=== PATIENT | female | born 1960 | race Caucasian/White ===

== ENCOUNTER → 2017-04-22 | Outpatient (CLI) | payer OTHER ==
[~2017-04-22] MED LIST: ASCA500 PO; CHOL100010 PO; FLUT0.15 NAE; GLUCTAB7 PO; IBUP-1105 PO; LEVO75TA5 PO; MAGN400T6 PO; MULT-506 PO
--- NOTE | 2017-04-23 14:06 | MAMMOGRAPHY REPORT ---
BILATERAL DIGITAL SCREENING MAMMOGRAM TOMOSYNTHESIS WITH CAD: 04/22/2017 CLINICAL HISTORY: Routine screening. Patient has no complaints. TECHNIQUE: Breast tomosynthesis in addition to standard 2D mammography was performed. Current study was also evaluated with a Computer Aided Detection (CAD) system. COMPARISON: Comparison is made to exams dated: 04/09/2016 ultrasound, 04/09/2016 mammogram, 03/31/2016 mammogram, 03/26/2015 mammogram, 03/24/2014 mammogram, and 03/22/2013 mammogram - [facility]. BREAST COMPOSITION: The tissue of both breasts is heterogeneously dense, which may obscure small ma sses. FINDINGS: The parenchymal pattern is unchanged. No developing mass, architectural distortion or clu ster of suspicious microcalcifications is seen in either breast. IMPRESSION: ACR BI-RADS CATEGORY 2: BENIGN There is no mammographic evidence of malignancy. A 1 year screening mammogram is recommended. The p atient will receive written notification of the results. Approximately 10% of breast cancers are not detected with mammography. A negative mammographic repor t should not delay biopsy if a clinically suggestive mass is present. Carey Silva M.D. ay/:04/22/2017 15:43:29 Canine Enforcement Officer: Debbie BARTON(Jigna)(M), [facility] letter sent: Normal 1/2 BI-RADS Code: ACR BI-RADS Category 2: Benign
== END | disposition home or self-care (01) ==
LOC: C.MAMM 14:24
PROVIDERS: ATTEND Family Medicine
DX: Z12.31 Encounter for screening mammogram for malignant neoplasm of breast (principal)

== ENCOUNTER → 2017-09-22 | Outpatient (CLI) | payer OTHER | END | disposition home or self-care (01) | LOC: C.RDSM 14:00 | PROVIDERS: ATTEND Orthopaedic Surgery Sports Medicine | DX: M25.521 Pain in right elbow (principal) ==

== ENCOUNTER → 2017-10-28 | Outpatient (CLI) | payer OTHER ==
--- NOTE | 2017-10-28 09:36 | DIAGNOSTIC IMAGING REPORT ---
ULTRASOUND OF THE THYROID GLAND CLINICAL HISTORY: Multinodular goiter. COMPARISON STUDY: Thyroid ultrasound dated 08/02/2014. TECHNIQUE: Real-time, grayscale, and color flow sonography of the thyroid gland is performed utilizing a high-frequency linear transducer. Images are reviewed in the transverse and longitudinal planes. FINDINGS: Right lobe: The right lobe of the thyroid gland is normal in size and homogeneous in echotexture, measuring 4.9 x 1.3 x 1.3 cm. A hypoechoic nodule versus colloid cyst is identified in the right midpole and measures 1.1 x 0.6 x 0.7 cm (producing measured 2.0 x 1.1 x 0.9 cm). An additional 2 mm hypoechoic nodule is seen in the midpole. Left lobe: The left lobe of the thyroid gland is normal in size and homogeneous in echotexture, measuring 3.7 x 1.2 x 1.2 cm. Isthmus: The thyroid isthmus is normal in appearance and measures 0.2 cm in AP diameter. Again seen is a 1.7 x 1.1 x 1.5 cm simple appearing cystic structure seen inferior to the thyroid gland in the midline (previously measuring 1.7 x 1.4 x 1.5 cm). IMPRESSION: 1. A 1.1 cm cystic nodule in the right lobe has significantly decreased in size as compared to 08/02/2014. 2. A 1.7 cm cystic lesion in the midline inferior to the thyroid gland has not significantly changed from 2013. 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 Electronically signed by: Gonzalo Nesbitt M.D. 10/28/2017 9:35 AM Dictated Date/Time: 10/28/2017 9:25 AM
== END | disposition home or self-care (01) ==
LOC: C.ULTRBC 08:45
PROVIDERS: ATTEND Physician Assistant
DX: E04.2 Nontoxic multinodular goiter (principal)

== ENCOUNTER → 2018-04-06 | Outpatient (CLI) | payer OTHER ==
--- NOTE | 2018-04-07 15:06 | MAMMOGRAPHY REPORT ---
BILATERAL DIGITAL SCREENING MAMMOGRAM TOMOSYNTHESIS WITH CAD: 04/06/2018 CLINICAL HISTORY: Routine screening. Patient has no complaints. TECHNIQUE: Breast tomosynthesis in addition to standard 2D mammography was performed. Current study was also evaluated with a Computer Aided Detection (CAD) system. COMPARISON: Comparison is made to exams dated: 04/22/2017 mammogram, 04/09/2016 ultrasound, 04/09/2016 mammogram, 03/31/2016 mammogram, 03/26/2015 mammogram, and 03/24/2014 mammogram - [facility]. BREAST COMPOSITION: The tissue of both breasts is heterogeneously dense, which may obscure small mas ses. FINDINGS: The parenchymal pattern is unchanged. No developing mass, architectural distortion or clus ter of suspicious microcalcifications is seen in either breast. IMPRESSION: ACR BI-RADS CATEGORY 2: BENIGN There is no mammographic evidence of malignancy. A 1 year screening mammogram is recommended. The pa tient will receive written notification of the results. Approximately 10% of breast cancers are not detected with mammography. A negative mammographic report should not delay biopsy if a clinically suggestive mass is present. Carey Silva M.D. ay/:04/06/2018 16:29:42 Ocean Freight Manager: Jigna Yadav M, [facility] letter sent: Normal 1/2 BI-RADS Code: ACR BI-RADS Category 2: Benign
== END | disposition home or self-care (01) ==
LOC: C.MAMM 11:33
PROVIDERS: ATTEND Nurse Practitioner
DX: Z12.31 Encounter for screening mammogram for malignant neoplasm of breast (principal)

== ENCOUNTER 2022-05-06 07:35 | Observation (INO) ==
--- NOTE | 2022-04-24 11:05 | PAT Medication Instructions ---
Medication Instructions Date of Service April 24, 2022 Home Medications fluticasone propionate 50 mcg/actuation nasal spray,suspension (Flonase Allergy Relief) 1 sprays INTNAS QAM PRN multivitamin 1 cap PO QPM ascorbic acid (vitamin C) 1,000 mg tablet 1,000 - 2,000 mg PO QAM calcium phosphate,dibasic 77 mg-vitamin D3 400 unit tablet tab PO levothyroxine 75 mcg tablet (Synthroid) 75 mcg PO QAM magnesium citrate 100 mg tablet 400 mg PO QAM riboflavin (vitamin B2) 400 mg tablet 400 mg PO QAM ubrogepant 100 mg tablet (Ubrelvy) 100 mg PO QAM PRN DO NOT take the morning of surgery ascorbic acid (vitamin C) 1,000 mg tablet 1,000 - 2,000 mg PO QAM calcium phosphate,dibasic 77 mg-vitamin D3 400 unit tablet tab PO magnesium citrate 100 mg tablet 400 mg PO QAM riboflavin (vitamin B2) 400 mg tablet 400 mg PO QAM Take morning of surgery With a small sip of water, OTHERWISE NOTHING TO EAT OR DRINK AFTER MIDNIGHT: fluticasone propionate 50 mcg/actuation nasal spray,suspension (Flonase Allergy Relief) 1 sprays INTNAS QAM PRN(if needed) levothyroxine 75 mcg tablet (Synthroid) 75 mcg PO QAM ubrogepant 100 mg tablet (Ubrelvy) 100 mg PO QAM PRN(if needed) Take evening before surgery multivitamin 1 cap PO QPM Other Notes If you have any questions please call us at [phone] or [phone] or [phone] or [phone]
--- NOTE | 2022-04-29 10:15 | Anesthesiology Consultation ---
Date of Service April 29, 2022 Assessment & Plan (1) Encounter for pre-operative examination: - atrial septal aneurysm without PFO. Case discussed with Dr. Rowe who also reviewed echocardiogram and advised patient is acceptable risk for surgery and option of neuraxial anesthesia not requiring fentanyl, if pt elects to proceed with neuraxial anesthesia am DOS. pt states does not want/cannot receive any fentanyl. She also has concerns with neuraxial vs general anesthesia. We discussed both, typical approach for TKAs and she plans to have final discussion with anesthesiologist am DOS. - COVID screening: Per assessment on 04/29/2022: Travel screen negative, no known COVID-19 positive contacts or current COVID-19 related symptoms in past 2 weeks. Pt vaccinated. Surgeon arranging preop COVID testing, scheduled 05/02/2022. Awaiting results. Chart Review Chart Review: Acceptable Risk for Surgery and Patient seen in Pre Admission Testing Teaching & Discussion Pre-Anesthesia Teaching/Discussion Notes: Instructed NPO after midnight before surgery, except medications with 15 cc of water. Medication instructions provided according to the PAT guidelines. History Surgery Operation Date: 05/06/22 07:00 Proposed Procedures p Right Total Knee Arthroplasty - Jeffrey Meliton Meadows MD Height/Weight Height: 6 ft Weight: 85.7 kg Allergies Allergy/AdvReac Type Severity Reaction Status Date / Time nitrofurantoin Allergy Unknown Rash Verified 04/24/22 10:01 [From Macrobid] fentanyl AdvReac Severe hallucinati Verified 04/29/22 10:29 ons Penicillins AdvReac Mild GI UPSET - Verified 04/24/22 10:01 HAPPENED A CHILD Sulfa (Sulfonamide AdvReac Mild GI upset Verified 04/24/22 10:01 Antibiotics) lactose AdvReac Unknown SENSITIVITY Verified 04/24/22 10:01 TO MILK Medications Home Medications Medication Instructions Recorded Confirmed Last Taken fluticasone propionate 50 1 sprays INTNAS QAM PRN 09/21/19 04/24/22 Unknown mcg/actuation nasal spray,suspension (Flonase Allergy Relief) multivitamin 1 cap PO QPM 09/21/19 04/24/22 Unknown ascorbic acid (vitamin C) 1,000 mg 1,000 - 2,000 mg PO QAM tab 03/28/21 04/24/22 Unknown tablet calcium phosphate,dibasic 77 tab PO 04/24/22 Unknown mg-vitamin D3 400 unit tablet levothyroxine 75 mcg tablet 75 mcg PO QAM 04/24/22 04/24/22 Unknown (Synthroid) magnesium citrate 100 mg tablet 400 mg PO QAM 04/24/22 04/24/22 Unknown riboflavin (vitamin B2) 400 mg 400 mg PO QAM 04/24/22 04/24/22 Unknown tablet ubrogepant 100 mg tablet (Ubrelvy) 100 mg PO QAM PRN 04/24/22 04/24/22 Unknown Past Medical History Medical History (Updated 04/30/22 @ 08:59 by Olivia Chase PA-C) Asthma ALLERGIES-RARELY USES INHALER-last rescue inhaler use several months ago Atrial septal aneurysm "without obvious PFO" 06/2021 echo GERD (gastroesophageal reflux disease) controlled, stable per pt Tom's thyroiditis Heart murmur per pt detected by PCP last yr, no listed aortic stenosis on 07/2021 echo: atrial septum aneurysm without obvious PFO detected Hyperlipidemia pt denies Lyme disease 4-5 yrs ago, treated, denies residual problems Migraine Prolapse of bladder Patient denies h/o stroke, seizures, heart attack, heart failure, DM, HTN, blood clots or blood transfusions. Exercise / Class Metabolic Activity II 4-5 Yardwork/Stairs/Walk up hill (denies CP or SOB with 1 FOS) Past Family History Family History Mother Hypertension Grandmother (Maternal) Family hx of colon cancer Past Surgical History Surgical History (Updated 04/29/22 @ 10:41 by Olivia Chase PA-C) H/O bladder repair surgery x3-pt reports awareness during surgery H/O knee surgery R-x3 /L-x2 H/O myomectomy fibroid H/O: hysterectomy History of bilateral tubal ligation History of colonoscopy 10 yrs History of esophagogastroduodenoscopy (EGD) History of herniorrhaphy History of repair of rotator cuff RIGHT S/P hernia repair at 6 mos old Past Anesthesia History No Family Hx of Anesthesia Complications and Other (awareness) History of PONV No Hx of PONV and No Hx of Motion Sickness Social History Smoking Status: Never smoker Do You Dip or Chew Tobacco: No Hx Alcohol Use: Yes Alcohol type: wine alcohol intake frequency: 0-2 drinks per day Hx Substance Use: No substance use type: does not use Review of Systems Patient denies chest pain, shortness of breath, dyspnea on exertion, snoring, w itnessed apneas, fever, chills, cough, wheezing, or palpitations. Physical Exam Vital Signs Vitals BP 112/66 P 76 TEMP 98.4 SP02 98% on RA RESP 16 Physical Full cervical extension range of motion without pain TMD 3.5 finger breaths Mallampati Score 2 Dentition: intact, missing teeth-left upper side, [place] permanent bridge left side, several caps/crowns throughout-none in front; denies chipped or loose teeth, implants Lungs: normal respiratory effort. Clear throughout to auscultation, no adventitious breath sounds Cardiac: regular rate and rhythm, no murmurs noted Carotid arteries: negative bruit bilat Lab Results Anesthesia Preop Results Results Anesthesia Widget: WBC 3.39 K/uL (4.8-10.8) L 04/29/22 Hgb 14.4 g/dL (12.0-16.0) 04/29/22 Hct 41.6 % (37-47) 04/29/22 Plt 253 K/uL (130-400) 04/29/22 Na 134 mmol/L (136-145) L 04/29/22 K 3.9 mmol/L (3.5-5.1) 04/29/22 Cl 99 mmol/L (98-107) 04/29/22 CO2 30 mmol/L (21-32) 04/29/22 BUN 11 mg/dl (6-23) 04/29/22 Creat 0.72 mg/dl (0.6-1.2) 04/29/22 Glucose Level 123 mg/dl (70-99(Fasting)) H 04/29/22 PT 10.7 Seconds (9.0-12.0) 04/29/22 PTT 25.6 Seconds (21.0-31.0) 04/29/22 INR 1.0 (0.9-1.1) 04/29/22 Urine Color Dark Yellow 04/29/22 Urine Appearance Clear (Clear) 04/29/22 Urine pH 5.0 (4.5-7.5) 04/29/22 Urine Specific Peridot 1.009 (1.000-1.030) 04/29/22 Urine Protein Negative (Negative) 04/29/22 Urine Glucose (UA) Negative (Negative) 04/29/22 Urine Ketones Negative (Negative) 04/29/22 Urine Blood Negative (Negative) 04/29/22 Urine Nitrite Negative (Negative) 04/29/22 Urine Bilirubin Negative (Negative) 04/29/22 Urine Urobilinogen Negative (Negative) 04/29/22 Urine Leukocyte Esterase Negative (Negative) 04/29/22 Blood Type O Positive 04/29/22 Antibody Screen NEGATIVE 04/29/22 Testing Laboratory Results Chronic leukopenia since 2018. Electrocardiogram Date: 04/29/22 NSR, rate 72 bpm Chest X-Ray Date: 04/29/22 The cardiomediastinal and hilar silhouettes are within normal limits. No pneumothorax, pleural effusion, airspace consolidation or overt pulmonary edema. Bones of the chest appear grossly intact. Mild sigmoidal scoliosis of the spine. IMPRESSION: No acute process. Echocardiogram Date: 08/06/21 EF 65% Normal LV size, wall thickness, systolic function with no regional wall motion abnormalities Type 1 diastolic dysfunction Atrial septum aneurysm without obvious PFO Trileaflet aortic valve with trace aortic regurgitation Mild tricuspid regurgitation
--- NOTE | 2022-05-06 06:38 | History & Physical Bridge Note ---
Date of Service May 06, 2022 History & Physical Bridge Note I have examined the patient, reviewed the History & Physical and in the interval since the performance of the History & Physical I have noted the following changes of clinical significance: no changes noted Patient is aware of the risks, is asymptomatic and tested negative for COVID-19.
[~2022-05-06 07:35] MED LIST changes: +ACETAMINOPHEN 500 MG TAB PO SCH; -ASCA500 PO; +BUPIVACAINE 0.5 % 5 MG/1 ML PF 10ML VIAL ONE; -CHOL100010 PO; +EPINEPHrine INJ 1 MG/ML AMP ONE; -FLUT0.15 NAE; +GABAPENTIN 600 MG DOSE PO SCH; -GLUCTAB7 PO; -IBUP-1105 PO; -LEVO75TA5 PO; +LR 500ML BOLUS, THEN 15ML/HR IV SCH; +LR 60ML/HR IV SCH; -MAGN400T6 PO; -MULT-506 PO; +ROPIVACAINE 0.5% 5 MG/ML 30 ML VIAL ONE; +ROPIVACAINE 0.5% HCL/PF 150 MG, BUPIVACAINE 0.75% MPF 20 ML, EPINEPHrine 0.15 MG, Ketor... INFIL SCH; +Scopolamine 1 MG TDSY TD SCH; +TRANEXAMIC ACID 1,000 MG **IV Intra-op IV SCH; +TRANEXAMIC ACID 1,000 MG **IV Pre-op IV SCH; +VANCOMYCIN HCL 1,250 MG in SODIUM CHLORIDE 0.9% 250 ML IV SCH; +oxyCODONE HCL 10 MG TABCR (OxyCONTIN) PO SCH
[2022-05-06] MEDS ORDERED: MIDAZOLAM HCL 1 MG/ML 2ML VIAL ONE ×3 (09:25→11:44)
[2022-05-06] MEDS ORDERED: LIDOCAINE 2% 2 ML VIAL/AMP(20MG/ML) INFIL ONE (09:34)
[2022-05-06] MEDS ORDERED: PROPOFOL IV EMULSION 10 MG/ML 20 ML VIAL IV ONE ×4 (09:34→13:14)
[2022-05-06] MEDS ORDERED: ORTHO JOINT ANESTHETIC ONE (10:23)
[2022-05-06] MEDS ORDERED: GELATIN SPONGE 12-7MM ONE ×2 (12:34→12:37)
--- NOTE | 2022-05-06 13:39 | Post Operative Brief Note ---
Immediate Post Op Note v1 Date of Surgery May 06, 2022 Pre & Post Diagnosis Operation Date: 05/06/22 10:20 Pre-Op Diagnosis: Right Knee Osteoarthritis Post-Op Diagnosis: Right Knee Osteoarthritis I identified the patient and participated in the time-out.: Yes Procedure Operation Date: 05/06/22 10:20 Actual Procedures p Right Total Knee Arthroplasty, computer assited(Right) - Jeffrey Meadows MD Surgeon Jeffrey Meadows MD Grinder Set Up Operator Kayla Stoll PA-C (No fellow avail) Estimated Blood Loss 120 Findings Consistent with Post-Op Diagnosis Fluids 1500 cc Specimens Right knee contents Anesthesia Type MAC Spinal Regional Complications none
--- NOTE | 2022-05-06 13:40 | Operative Report ---
Post Operative Report Pre & Post Diagnosis Operation Date: 05/06/22 10:20 Pre-Op Diagnosis: Right Knee Osteoarthritis Post-Op Diagnosis: Right Knee Osteoarthritis I identified the patient and participated in the time-out.: Yes Procedure Operation Date: 05/06/22 10:20 Actual Procedures p Right Total Knee Arthroplasty, computer assisted(Right) - Jeffrey Meadows MD Surgeon Jeffrey Meadows MD Ed Case Manager Kayla Stoll PA-C (No fellow avail) Estimated Blood Loss 120 Findings See Below Examined Under Anesthesia: ROM -- There was 0 degrees to 125 degrees of flexion Ligamentous examination -- revealed stable Cherie, posterior drawer, varus and valgus stress at 0 and 30 degrees. Outerbridge Type IV changes of Tri-compartments. There were significant marginal and intercondylar osteophytes. There was a small loose body. Fluids 1500 cc Specimens Right knee contents Anesthesia Type MAC Spinal Regional Complications none Indications This is a 61-year-old female who has clinical and radiographic findings consistent with osteoarthritis of the a right knee. I recommended that a right total knee replacement be performed. The patient understands the risks of surgery, which include but not limited to: bleeding, infection, re-operation, damage to nerves and arteries, continued knee pain, knee stiffness, DVT, and . The patient understands all of these instructions and explanations, all of his questions have been satisfactorily addressed and the patient has elected to proceed. Informed consent was signed. Description of Procedure IMPLANTS: 1. Femur: Triathlon #4 Right PS. 2. Tibia: Triathlon #5 Eugene. 3. Insert: Triathlon #5 x 9 mm PS X3 poly. 4. Patella: Triathlon A35 x 10 mm X3 poly. 5. Simplex cement. Kayla Stoll PA-C is assisting with positioning, retracting, and closure due to fellow not available. Procedure: The patient was taken to the Operating Room and placed in the supine position after spinal and adductor canal nerve block was administered. My initials and a multidisciplinary time-out were used to identify the right leg as the correct operative limb. A tourniquet was placed high in the thigh. Prior to the incision, weight based intravenous Vancomycin was given. The right leg was then prepped and draped in a standard sterile fashion. An Esmarch was used to exsanguinate the leg and the tourniquet was inflated to 250 mmHg. Extending her previous lateral incision, that curved around the patella and distal to her tibial tubercle, proximally incision was created exposing the extensor mec hanism. The medial parapatellar arthrotomy was made and the patella was everted. The patella was addressed first. It was prepared by reaming from 24 mm down to 14 mm. An A35 button was found to fit best. The peg holes were made in the standard fashion. The femur was addressed next using computer assisted OrthoAlign with 3 degrees of flexion and 0 degrees of valgus in the standard fashion for the distal cut. The cut was made and the 4-in-1 cutting block for a size 4 femur was placed. These cuts and the cuts to place the box were made in the standard fashion. Our attention was then drawn to the tibia cut again using computer assisted OrthoAlign, taking 2 mm from the medial low side. There was sufficient extension and flexion gap to fit a 9 mm spacer. A #5 Tibial baseplate fit well. A trial with a 9 mm spacer showed excellent stability in both flexion and extension, with good ligament balance, and thumbs free patellar tracking. Range of motion of 0-130 degrees. The tibial baseplate was prepped for the keel and stem. All components were removed. The tourniquet was deflated. Hemostasis was obtained. 90 ml of total knee cocktail were injected into the soft tissues and periosteum. After a 12 minute break, the limb was exsanguinated again and the tourniquet was re-inflated. All surfaces were copiously irrigated prior to placement of the components. The femoral component followed by Tibial baseplate were cemented in place and and the 9 mm X3 poly was placed. Next, the patellar button was placed using the same Simplex cement. Once the cement had cured, the range of motion and stability were unchanged. The extensor mechanism was closed with 1-0 and 0 Vicryl with the knee bent approximately 60 degrees in a standard fashion. The peritenon and deep fascia was closed with 2-0 Vicryl. The subcutaneous layer was closed with 3-0 Vicryl. The skin was closed with Zipline and shield. The limb was cleaned and dried. 4x4 dressing was placed over top followed by ABDs, sterile Webril, and a foot to thigh Colin bandage. The patient was then transferred to the Recovery Room in stable condition. The sponge and needle counts were correct. POST-OP INSTRUCTIONS: The patient will be WBAT. The patient will be admitted to the hospital. Labs will be obtained during the stay. DVT prophylaxis will included aspirin for 6 weeks, TEDs, and mechanical foot pumps. The dressing will be changed prior to their discharge or postop day #2 and covered with a Silverlon dressing, whichever comes first. I attest to the content of the Intraoperative Record and any orders documented therein. Any exceptions are noted below.
[2022-05-06] MEDS ORDERED: MAGNESIUM HYDROXIDE SUSP 30 ML UDC PO PRN (13:54)
[2022-05-06] MEDS ORDERED: NALOXONE HCL 0.4 MG/1 ML VIAL/CARP IV PRN ×2 (13:54→13:57)
[2022-05-06] MEDS ORDERED: METOCLOPRAMIDE HCL INJ 5 MG/ML 2 ML VIAL IV PRN (13:54)
[2022-05-06] MEDS ORDERED: bisacodyL 10 MG SUPP PR PRN (13:54)
[2022-05-06] MEDS ORDERED: ONDANSETRON INJ 2 MG/ML 2 ML VIAL IV PRN ×2 (13:54→13:57)
--- NOTE | 2022-05-06 13:54 | Operative Report ---
Post Operative Report Pre & Post Diagnosis Operation Date: 05/06/22 10:20 Pre-Op Diagnosis: Right Knee Osteoarthritis Post-Op Diagnosis: Right Knee Osteoarthritis I identified the patient and participated in the time-out.: Yes Procedure Operation Date: 05/06/22 10:20 Actual Procedures p Right Total Knee Arthroplasty(Right) - Jeffrey Meadows MD Surgeon Dr Jeffrey Meadows Performance Test Engineer Kayla Stoll PA-C (No fellow avail) Estimated Blood Loss 120 Findings Consistent with Post-Op Diagnosis Specimens none Description of Procedure Pt was taken to operating room, placed under general anesthesia with peripheral nerve block. Pt was given 1g Vanco IV. Prepped and draped in sterile fashion. I was present during the entire case and assisted with positioning, instrumentation, closure and dressings. Please see Dr. Meadows's op report for further detail. Pt was awake and transferred to PACU in stable condition I attest to the content of the Intraoperative Record and any orders documented therein. Any exceptions are noted below.
[2022-05-06] MEDS ORDERED: VANCOMYCIN CONSULT ACTIVE PRN (13:56)
[2022-05-06] MEDS ORDERED: HYDROmorphone INJ 1 MG/ML SYRINGE IV PRN (13:57)
[2022-05-06] MEDS ORDERED: FLUMAZENIL 0.1 MG/1 ML 10 ML VIAL IV PRN (13:57)
[2022-05-06] MEDS ORDERED: PROMETHAZINE HCL 12.5 MG in SODIUM CHLORIDE 0.9% 50 ML IV PRN (13:57)
[2022-05-06] MEDS ORDERED: ATROPINE SULFATE 0.1 MG/ML 10ML SYR IV PRN (13:57)
[2022-05-06] MEDS ORDERED: ePHEDrine sulfate 50 MG/ML AMP IV PRN (13:57)
[2022-05-06] MEDS ORDERED: LABETALOL HCL IV 5 MG/ML 20ML IV PRN (13:57)
--- NOTE | 2022-05-06 14:37 | XRay Report ---
TWO VIEWS RIGHT KNEE CLINICAL HISTORY: Postoperative examination. FINDINGS: AP and crosstable lateral portable views of the right knee are obtained. A right knee arthr oplasty is in near anatomic alignment. There has been undersurface remodeling of the patella. No acut e fracture is seen. Soft tissue edema and subcutaneous gas are expected postoperative changes. IMPRESSION: Expected postoperative changes status post right knee arthroplasty. No acute fracture is seen. ACT 112: Negative or not required by law. Electronically signed by: Gonzalo Nesbitt M.D. 05/06/2022 2:35 PM
--- NOTE | 2022-05-06 14:38 | Anesthesiology Progress Note ---
Date of Service May 06, 2022 Anesthesia Post Procedure Vital Signs Vital Signs: Temp Pulse Pulse Resp BP Pulse Ox 05/06/22 14:30 36.6 C 60 10 L 132/81 95 05/06/22 14:25 36.6 C 64 9 L 132/83 96 05/06/22 14:15 60 9 L 133/83 100 05/06/22 14:05 63 11 L 135/86 100 05/06/22 13:56 36.6 C 78 16 136/81 100 05/06/22 08:21 36.6 C 71 18 137/80 97 Transfer of Care Handoff Completed per policy Notes Mental Status: alert / awake / arousable Patient Amnestic to Procedure: Yes Nausea / Vomiting: adequately controlled Pain: adequately controlled Airway Patency, RR, SpO2: stable & adequate BP & HR: stable & adequate Hydration State: stable & adequate Neuraxial Anesthesia: was administered and sensory block is resolving Anesthetic Complications: no major complications apparent
[2022-05-06] MEDS: Scopolamine CHECK PATCH PLACEMENT SCH (16:18)
[2022-05-06] MEDS: oxyCODONE HCL IR 5 MG TAB (IMMEDIATE RELEASE) PO PRN ×2 (16:57→21:05)
[2022-05-06] MEDS: SODIUM CHLORIDE 0.9% 1000ML 1,000 ML IV SCH ×2 (16:58→19:39)
--- NOTE | 2022-05-06 17:35 | Orthopedic Progress Note ---
Date of Service May 06, 2022 Assessment & Plan (1) Osteoarthritis of right knee: Plan: POD #0 s/p R TKA, doing as well as expected. Resume diet. WBAT with walker. OOB to chair. Continue pain control. Check labs tomorrow. DVT prophylaxis: TEDs 3 weeks, foot pumps while in hospital, ASA 81 mg BID for 6 weeks. PT/OT. D/C planning. Called by nursing pt with low BP. Gave 1L bolus and BP improved. Also will increase fluid rate to 150 ml/hr after completing bolus. Present on Admission?: Yes Admission and Anticipated Discharge Date Admission Date: May 06, 2022 Subjective Having right knee pain. Review of Systems Review of Systems: All systems reviewed & are unremarkable except as noted in HPI & below Physical Exam Physical Exam: RLE: BCR < 2 sec. Sensation to light touch [intact distally]. Wiggling ankle and toes. Calf soft and non-tender. Dressing is clean, dry, intact. Results & Data ([facility]) Vital Signs (Past 12 Hours) Vital Signs Temp Pulse Pulse Resp BP Pulse Ox 05/06/22 17:00 36.4 C L 70 16 122/74 96 05/06/22 16:30 36.7 C 59 L 16 123/79 98 05/06/22 16:01 36.6 C 61 16 123/81 100 05/06/22 15:00 36.6 C 56 L 12 120/79 94 05/06/22 14:45 36.6 C 59 L 9 L 130/88 94 05/06/22 14:30 36.6 C 60 10 L 132/81 95 05/06/22 14:25 36.6 C 64 9 L 132/83 96 05/06/22 14:15 60 9 L 133/83 100 05/06/22 14:05 63 11 L 135/86 100 05/06/22 13:56 36.6 C 78 16 136/81 100 05/06/22 08:21 36.6 C 71 18 137/80 97 Diagnostic Findings I reviewed the AP & lateral of the right knee which showed expected findings s/p R TKA.
[2022-05-06] MEDS ORDERED: SODIUM CHLORIDE 0.9% 1000ML 1,000 ML IV ONE (18:16)
[2022-05-06] MEDS: ASCORBIC ACID 500 MG TAB PO SCH (18:24)
[2022-05-06] MEDS: FERROUS GLUCONATE 324 MG TAB PO SCH (18:25)
[2022-05-06] MEDS: ACETAMINOPHEN 500 MG TAB PO PRN (18:32)
[2022-05-06] MEDS ORDERED: HYDROmorphone INJ 0.5 MG/0.5 ML SYR IV STA (18:53)
[2022-05-06] MEDS: HYDROmorphone INJ 0.5 MG/0.5 ML SYR IV PRN (19:08)
[2022-05-06] MEDS: SENNA 8.6 MG TAB PO SCH (19:37)
[2022-05-06] MEDS: DOCUSATE SODIUM 100 MG CAP PO SCH (19:38)
[2022-05-06] MEDS ORDERED: NON-FORMULARY MEDICATION (Multivitamin capsule) PO SCH (21:00)
[2022-05-06] MEDS ORDERED: VANCOMYCIN HCL 1,250 MG in SODIUM CHLORIDE 0.9% 250 ML IV SCH (21:00)
[2022-05-07] MEDS: Scopolamine CHECK PATCH PLACEMENT SCH ×4 (00:17→22:45)
[2022-05-07] MEDS: HYDROmorphone INJ 0.5 MG/0.5 ML SYR IV PRN ×2 (00:17→08:09)
[2022-05-07] MEDS: SODIUM CHLORIDE 0.9% 1000ML 1,000 ML IV SCH (03:10)
[2022-05-07] MEDS: oxyCODONE HCL IR 5 MG TAB (IMMEDIATE RELEASE) PO PRN ×2 (04:23→12:22)
[2022-05-07 06:30] LABS: Hematocrit (blood only) 31.6 % (37-47); Hemoglobin 10.9 g/dL (12.0-16.0); Mean Corpuscular Hemoglobin 31.2 pg (25-34); Mean Corpuscular Hgb Conc 34.5 g/dL (32-36); Mean Corpuscular Volume 90.5 fL (80-100); Mean Platelet Volume 10.4 fL (7.4-10.4); Platelet Count 175 K/uL (130-400); RDW Coefficient of Variation 12.6 % (11.5-14.5); RDW Standard Deviation 41.7 fL (36.4-46.3); Red Blood Count 3.49 M/uL (4.2-5.4); White Blood Count 7.82 K/uL (4.8-10.8)
[2022-05-07 06:49] LABS: BUN Creatinine Ratio 20.6 (10-20); Calcium 8.3 mg/dl (8.5-10.1); Creatinine Clr Calc Pharmacy 105.5 ml/min; Est GFR (African American) 110.6 ml/min; Est GFR (Non-African American) 95.5 ml/min; Potassium 4.4 mmol/L (3.5-5.1)
[2022-05-07] MEDS: LEVOTHYROXINE SODIUM 75 MCG TABLET PO SCH (07:00)
[2022-05-07] MEDS: ACETAMINOPHEN 500 MG TAB PO PRN ×2 (07:29→14:20)
--- NOTE | 2022-05-07 08:25 | Orthopedic Progress Note ---
Date of Service May 07, 2022 Assessment & Plan (1) Osteoarthritis of right knee: Plan: POD1 s/p total knee arthroplasty WBAT with walker PT/OT Diet - regular Frequently ice and elevate with blankets stacked under ankle DVT prophylaxis: ASA 81mg BID x 6 weeks, TEDS x 3 weeks, foot pumps while in hospital Pain control: Tylenol 1000mg q 8hrs, oxycodone 5-10mg q4-6 hrs for moderate pain, Dilaudid 0.5mg IV for severe/breakthrough pain Vitamin C and Iron supplementation BID x 2 weeks Dressing: will change dressing romorrow to Mepilex dressing that patient can leave in-tact until f/u Discharge home with home health x 2 weeks Discharge likely this afternoon but pending PT/OT and pain control Follow up as scheduled with [facility] in 2 weeks I, Dr. Meadows, saw and examined the patient and discussed the management with my PA. I reviewed my PAs note and agree with the documented findings and the plan of care I developed. Patient still requiring IV pain medicine to control pain. Patient was also nauseous and light headed working with PT today. Admission and Anticipated Discharge Date Admission Date: May 06, 2022 Subjective Pt was seen and examined bedside. POD #1 s/p total knee arthroplasty. Pt was admitted last night for observation. She did have episode of hypotension and was given 1L fluid bolus and fluid increased to 150mL/hour. Vitals are stable currently. Labs unremarkable. X-rays show normal post operative changed. Pt reports they are doing well and pain is controlled today. They are tolerating PO intake and voiding adequate amounts. Working well with PT/OT. Pt denies F/C, N/V/D, SOB, CP. Pt discharge pending PT/OT. Physical Exam Physical Exam: General: Pt laying in hospital bed AA&O, in NAD, calm and cooperative during exam Lower Extremity: Dressing in tact and not saturated. Pt has full ROM of ankle and all 5 digits. Pt has 5/5 strength with resisted DF/PF. SLR difficult this morning for pt. Calf supple and non tender. NVI with sensation to light touch distally and good distal pulses present. Lower extremity noted to have good color and temperature with no signs of vascular or lymphatic insufficiency. Results & Data ([facility]) Vital Signs (Past 12 Hours) Vital Signs Temp Pulse Resp BP BP Pulse Ox 05/07/22 06:56 36.8 C 60 16 107/68 97 05/07/22 04:27 36.7 C 67 16 110/73 95 05/06/22 23:58 36.5 C 66 17 110/69 95 Laboratory Results 05/07/22 05/07/22 05/06/22 Range/Units 05:46 05:46 08:00 WBC 7.82 (4.8-10.8) K/uL RBC 3.49 L (4.2-5.4) M/uL Hgb 10.9 L (12.0-16.0) g/dL Hct 31.6 L (37-47) % MCV 90.5 (80-100) fL MCH 31.2 (25-34) pg MCHC 34.5 (32-36) g/dL RDW Std Deviation 41.7 (36.4-46.3) fL RDW Coeff of Georgina 12.6 (11.5-14.5) % Plt Count 175 (130-400) K/uL MPV 10.4 (7.4-10.4) fL Sodium 132 L (136-145) mmol/L Potassium 4.4 (3.5-5.1) mmol/L Chloride 104 (98-107) mmol/L Carbon Dioxide 25 (21-32) mmol/L Anion Gap 3 (3-11) BUN 13 (6-23) mg/dl Creatinine 0.63 (0.6-1.2) mg/dl Est Cr Clr Drug Dosing 105.5 ml/min Est GFR ( Amer) 110.6 ml/min Est GFR (Non-Af Amer) 95.5 ml/min BUN/Creatinine Ratio 20.6 H (10-20) Glucose 110 H (70-99(Fasting)) mg/dl Calcium 8.3 L (8.5-10.1) mg/dl SARS-CoV-2, RNA, NAAT NEGATIVE (NEGATIVE)
[2022-05-07] MEDS ORDERED: NON-FORMULARY MEDICATION (Magnesium Citrate 100 mg Tablet) PO SCH (09:00)
[2022-05-07] MEDS ORDERED: NON-FORMULARY MEDICATION (Riboflavin (Vitamin B2) 400 mg Tablet) PO SCH (09:00)
[2022-05-07] MEDS: DOCUSATE SODIUM 100 MG CAP PO SCH ×2 (09:23→21:09)
[2022-05-07] MEDS: FERROUS GLUCONATE 324 MG TAB PO SCH ×2 (09:23→17:33)
[2022-05-07] MEDS: MULTIVITAMIN TAB PO SCH (09:24)
[2022-05-07] MEDS: ASCORBIC ACID 500 MG TAB PO SCH ×2 (09:24→17:33)
[2022-05-07] MEDS: CYCLOBENZAPRINE HCL 5 MG TAB PO SCH ×2 (14:45→22:15)
[2022-05-07] MEDS: KETOROLAC 30 MG/ML VIAL IV PRN ×2 (14:53→21:02)
[2022-05-07] MEDS ORDERED: SODIUM CHLORIDE 0.9% 1000ML 1,000 ML IV ONE (16:10)
--- NOTE | 2022-05-07 18:01 | Hospitalist Consultation ---
Date of Consultation May 07, 2022 Assessment & Plan (1) Postoperative hypotension: - Possible causes at this point include blood loss anemia vs cardiac vs opioid induced vs volume depletion. Less likely that this is opioid induced, as it has occurred independent of receiving Dilaudid or oxycodone for her pin. In fact, she maintained adequate BP overnight while receiving IV Dilaudid. She was given IVF yesterday which she responded to until this afternoon. May be acute blood loss anemia, Hgb 10.7 this AM on POD#1, was 14.4 one week ago. EBL 120c. Reportedly bled through bandage last evening and needed redressing. Reports she has had heartburn x2 days, and describes a vague chest pain/pressure that began this afternoon, not present at this time. Does have history of GERD, no known CAD. Echo in 2020 with atrial septal defect without PFO. - Recheck H/H now--> Hgb 11.0, stable. - Post-op CARLOS wrap removed to assess for hematoma by nurse, none noted. - Ordered STAT EKG-- NSR with no abnormalities. Also ordered stat trop,--> 9.3. - With non-elevated trop and EKG neg for evidence of ischemia or infarct, would consider her chest pressure is indeed heartburn. - Will order LRs at 125 cc/hr for now. With cardiac work up negative and Hgb stable from this AM, would say this is volume depletion, with some component being from acute blood loss, and continue IVF overnight. Supervising Physician Co-Signing Physician Notes Discussed with KORIN, reviewed documentation. Agree with the note above. This is a patient who is postoperative day 0 TKA. Our service was consulted for hypotension. Suspect this is secondary to Dilaudid, possible volume depletion postoperatively. Blood pressure seems to be improved today. Patient is slightly anemic, likely secondary to acute blood loss postoperatively but is remained stable. Okay to continue to monitor, otherwise no objection to discharging if patient is stable from orthopedic standpoint. History of Present Illness Reason for Consultation: Hypotension Attending Physician: Jeffrey Meadows MD History of Present Illness Marie Fallon is a 61-year-old female with past medical history of hypothyroidism, GERD, hyperlipidemia, asthma, and atrial septal aneurysm without PFO who was s/p right TKA POD #1. Hospitalist team was consulted for hypotension. It seems patient became hypotensive last evening, with BPs recorded 72/45 around 6 PM. 1L NSS bolus was ordered by primary team, patient's blood pressure responded appropriately. She sustained BP 100-120s overnight in the setting of receiving IV Dilaudid. Then again this afternoon, per nursing note, BP was checked prior to ambulating around 4 PM. It was noted to be it was noted to be 81/49 and patient was dizzy and seeing spots. Patient was laid down flat and rechecked and it was 96/58. Patient was ordered a 1 hour NSS bolus per primary team and hospitalist service was consulted for further management. Is reported that patient blood for her bandage last evening, requiring it to be replaced. Patient reports to me besides feeling exhausted and having pain at the site of operation, she feels okay. Reports she has had what she believes is heartburn for the past 2 days, and her asthma may be exacerbated, since she is having vague chest discomfort. She had a feeling of chest pain/pressure that began earlier this afternoon, exacerbated when using her incentive spirometer. I did check her BP during our visit, it was 94/59 while sitting upright. HR in 70s, regular rate and rhythm. Equal radial pulses b/l. Allergies Allergy/AdvReac Type Severity Reaction Status Date / Time nitrofurantoin Allergy Unknown Rash Verified 05/06/22 08:12 [From Macrobid] fentanyl AdvReac Severe hallucinati Verified 05/06/22 08:12 ons Penicillins AdvReac Mild GI UPSET - Verified 05/06/22 08:12 HAPPENED A CHILD Sulfa (Sulfonamide AdvReac Mild GI upset Verified 05/06/22 08:12 Antibiotics) lactose AdvReac Unknown SENSITIVITY Verified 05/06/22 08:12 TO MILK Home Medications Medication Instructions Recorded Confirmed Type fluticasone propionate 50 1 sprays INTNAS QAM PRN 09/21/19 05/06/22 History mcg/actuation nasal spray,suspension (Flonase Allergy Relief) multivitamin 1 cap PO QPM 09/21/19 05/06/22 History ascorbic acid (vitamin C) 1,000 mg 1,000 - 2,000 mg PO QAM tab 03/28/21 05/06/22 History tablet calcium phosphate,dibasic 77 tab PO 04/24/22 History mg-vitamin D3 400 unit tablet levothyroxine 75 mcg tablet 75 mcg PO QAM 04/24/22 05/06/22 History (Synthroid) magnesium citrate 100 mg tablet 400 mg PO QAM 04/24/22 05/06/22 History riboflavin (vitamin B2) 400 mg 400 mg PO QAM 04/24/22 05/06/22 History tablet ubrogepant 100 mg tablet (Ubrelvy) 100 mg PO QAM PRN 04/24/22 05/06/22 History acetaminophen 500 mg tablet 1,000 mg PO Q8H PRN 30 Days tab 05/08/22 Rx (Tylenol Extra Strength) ascorbic acid (vitamin C) 500 mg 500 mg PO BIDM 14 Days #28 tab 05/08/22 Rx tablet (Vitamin C) aspirin 81 mg tablet,delayed 81 mg PO BID 42 Days #84 tab 05/08/22 Rx release celecoxib 200 mg capsule (Celebrex) 200 mg PO BID 28 Days #56 cap 05/08/22 Rx ferrous gluconate 324 mg (38 mg 324 mg PO BIDM 14 Days #28 tab 05/08/22 Rx iron) tablet tramadol 50 mg tablet 50 mg PO Q4H #30 tab 05/08/22 Rx Patient History Medical History Asthma ALLERGIES-RARELY USES INHALER-last rescue inhaler use several months ago Atrial septal aneurysm "without obvious PFO" 06/2021 echo GERD (gastroesophageal reflux disease) controlled, stable per pt Tom's thyroiditis Heart murmur per pt detected by PCP last yr, no listed aortic stenosis on 07/2021 echo: atrial septum aneurysm without obvious PFO detected Hyperlipidemia pt denies Lyme disease 4-5 yrs ago, treated, denies residual problems Migraine Osteoarthritis of right knee Prolapse of bladder Surgical History H/O bladder repair surgery x3-pt reports awareness during surgery H/O knee surgery R-x3 /L-x2 H/O myomectomy fibroid H/O: hysterectomy History of bilateral tubal ligation History of colonoscopy 10 yrs History of esophagogastroduodenoscopy (EGD) History of herniorrhaphy History of repair of rotator cuff RIGHT S/P hernia repair at 6 mos old Family History Mother Hypertension Grandmother (Maternal) Family hx of colon cancer Social History Smoking Status: Never smoker Second Hand Exposure: No; Do You Dip or Chew Tobacco: No; Tobacco Cessation Education Requested by Patient: No Hx Alcohol Use: Yes Alcohol type: wine Hx Substance Use: No Preferred Language: Grenadian Communication Ability: Effective Hadoop Admin Required: No Beliefs That Will Affect Care: None marital status: Current Living Situation: Spouse Other Information That Helps Us Care for You: No Feels Safe at Home: Yes Safety Concerns: Feels Safe At This Time Assistive Devices: Walker Assistive Devices Comment: READING GLASSES Review of Systems Review of Systems: Constitutional: reports overall fatigue since operaiton, generally weak and dizzy with ambulation today; No fever/chills, myalgias, anorexia, night sweats Eyes: No diplopia, no worsening or blurred vision ENT: normal hearing, no trouble swallowing Respiratory: No cough, sputum, dyspnea at rest or on exertion Cardiovascular: central chest pressure this afternoon palpitations Abdomen: No pain, nausea, vomiting, diarrhea or constipation : Denies dysuria, hematuria, increased urgency/frequency, urinary retention Musculoskeletal: No joint pain, calf pain, swelling Neurologic: No weakness, numbness/tingling, or balance problems Psychiatric: No anxiety or depression Skin: No rash or itch Physical Exam Physical Exam: General: awake, alert, no apparent distress Head: Normocephalic, atraumatic ENT: PERRL, EOMI, no pharyngeal exudate, mucous membranes moist Chest: Clear to auscultation, on room air, no adventitious breath sounds Cardiac: Regular rate and rhythm, no murmur, no JVD, normal peripheral pulses, radial pulses equal bilaterally good capillary refill Abdominal: NABS x 4 quadrants, soft, nontender to palpation, no rebound, guarding or tenderness Extremities: Normal inspection, no peripheral edema or erythema, calfs nontender to palpation Psych: Normal mood and affect Neuro: AAO x 3, strength intact bilaterally and rated 5/5, no motor deficits, speech is clear, no peripheral sensory deficits Skin: no rash or erythema Results & Data Results & Data ([facility]) Vital Signs (Past 12 Hours) Vital Signs Temp Pulse Pulse Pulse Resp BP BP 05/07/22 17:27 104/55 L 05/07/22 16:39 96/61 L 05/07/22 16:17 95/56 L 05/07/22 16:00 71 76 81/49 L 96/58 L 05/07/22 14:47 36.7 C 74 20 101/53 L 05/07/22 11:15 36.7 C 62 16 100/64 05/07/22 06:56 36.8 C 60 16 107/68 Pulse Ox 05/07/22 17:27 05/07/22 16:39 05/07/22 16:17 05/07/22 16:00 95 05/07/22 14:47 99 05/07/22 11:15 98 05/07/22 06:56 97 Laboratory Results Abnormal lab results 05/07/22 05/07/22 Range/Units 05:46 05:46 RBC 3.49 L (4.2-5.4) M/uL Hgb 10.9 L (12.0-16.0) g/dL Hct 31.6 L (37-47) % Sodium 132 L (136-145) mmol/L BUN/Creatinine Ratio 20.6 H (10-20) Glucose 110 H (70-99(Fasting)) mg/dl Calcium 8.3 L (8.5-10.1) mg/dl Diagnostic Findings Knee X-Ray 05/06/22 13:58 TWO VIEWS RIGHT KNEE CLINICAL HISTORY: Postoperative examination. FINDINGS: AP and crosstable lateral portable views of the right knee are obtained. A right knee arthroplasty is in near anatomic alignment. There has been undersurface remodeling of the patella. No acute fracture is seen. Soft tissue edema and subcutaneous gas are expected postoperative changes. IMPRESSION: Expected postoperative changes status post right knee arthroplasty. No acute fracture is seen. ACT 112: Negative or not required by law. Electronically signed by: Gonzalo Nesbitt M.D. 05/06/2022 2:35 PM ECG Additional Comments: Normal sinus rhythm Normal ECG When compared with ECG of 29-APR-2022 10:59, No significant change was found. PG Care Time/CCT Total # of Minutes Spent Total Time Spent with Patient: Total time spent is greater than 50% in coordination of care (as documented) at patient's floor/unit and/or counseling patient: Coding Level of Care Code 11236 Inpt Consult Level 3 Diagnoses Postoperative hypotension I95.81
[2022-05-07] MEDS: LACTATED RINGER'S 1,000 ML IV SCH (19:15)
[2022-05-07 19:44] LABS: Basophils # (auto) 0.02 K/uL (0-0.2); Basophils % (auto) 0.3 %; Eosinophils # (auto) 0.03 K/uL (0-0.5); Eosinophils % (auto) 0.4 %; Hematocrit (blood only) 31.7 % (37-47); Immature Granulocytes # (auto) 0.02 K/uL (0.00-0.02); Immature Granulocytes % (auto) 0.3 %; Lymphocytes # (auto) 0.85 K/uL (1.2-3.4); Lymphocytes % (auto) 10.7 %; Mean Corpuscular Hemoglobin 31.2 pg (25-34); Mean Corpuscular Hgb Conc 34.7 g/dL (32-36); Mean Corpuscular Volume 89.8 fL (80-100); Mean Platelet Volume 11.4 fL (7.4-10.4); Monocytes # (auto) 1.08 K/uL (0.11-0.59); Monocytes % (auto) 13.5 %; Neutrophils # (auto) 5.98 K/uL (1.4-6.5); Neutrophils % (auto) 74.8 %; Platelet Count 151 K/uL (130-400); RDW Coefficient of Variation 12.5 % (11.5-14.5); Red Blood Count 3.53 M/uL (4.2-5.4); White Blood Count 7.98 K/uL (4.8-10.8)
[2022-05-07] MEDS: ASPIRIN 81 MG ECTAB PO SCH (21:08)
[2022-05-07] MEDS: SENNA 8.6 MG TAB PO SCH (21:09)
[2022-05-08] MEDS: ACETAMINOPHEN 500 MG TAB PO PRN ×2 (00:40→08:59)
[2022-05-08] MEDS: LACTATED RINGER'S 1,000 ML IV SCH ×2 (04:37→14:07)
[2022-05-08] MEDS: KETOROLAC 30 MG/ML VIAL IV PRN ×2 (04:37→12:06)
[2022-05-08] MEDS: LEVOTHYROXINE SODIUM 75 MCG TABLET PO SCH (06:33)
[2022-05-08 06:56] LABS: Basophils # (auto) 0.01 K/uL (0-0.2); Basophils % (auto) 0.2 %; Eosinophils # (auto) 0.06 K/uL (0-0.5); Hemoglobin 10.7 g/dL (12.0-16.0); Immature Granulocytes # (auto) 0.01 K/uL (0.00-0.02); Immature Granulocytes % (auto) 0.2 %; Lymphocytes % (auto) 13.3 %; Mean Corpuscular Hemoglobin 31.2 pg (25-34); Mean Corpuscular Hgb Conc 34.5 g/dL (32-36); Mean Corpuscular Volume 90.4 fL (80-100); Mean Platelet Volume 10.5 fL (7.4-10.4); Monocytes % (auto) 13.3 %; Neutrophils # (auto) 4.35 K/uL (1.4-6.5); Platelet Count 152 K/uL (130-400); RDW Coefficient of Variation 12.7 % (11.5-14.5); RDW Standard Deviation 42.1 fL (36.4-46.3); Red Blood Count 3.43 M/uL (4.2-5.4); White Blood Count 6.03 K/uL (4.8-10.8)
[2022-05-08] MEDS: CYCLOBENZAPRINE HCL 5 MG TAB PO SCH (09:00)
[2022-05-08] MEDS: ASCORBIC ACID 500 MG TAB PO SCH (09:00)
[2022-05-08] MEDS: DOCUSATE SODIUM 100 MG CAP PO SCH (09:00)
[2022-05-08] MEDS: MULTIVITAMIN TAB PO SCH (09:01)
[2022-05-08] MEDS: Scopolamine CHECK PATCH PLACEMENT SCH (09:01)
[2022-05-08] MEDS: ASPIRIN 81 MG ECTAB PO SCH (09:01)
[2022-05-08] MEDS: FERROUS GLUCONATE 324 MG TAB PO SCH (09:01)
--- NOTE | 2022-05-08 10:21 | Orthopedic Progress Note ---
Date of Service May 08, 2022 Assessment & Plan (1) Osteoarthritis of right knee: Plan: POD2 s/p total knee arthroplasty WBAT with walker PT/OT Diet - regular Frequently ice and elevate with blankets stacked under ankle DVT prophylaxis: ASA 81mg BID x 6 weeks, TEDS x 3 weeks, foot pumps while in hospital Pain control: Tylenol 1000mg q 8hrs, tramadol 50 mg q4-6 hrs for moderate pain, Dilaudid 0.5mg IV for severe/breakthrough pain Vitamin C and Iron supplementation BID x 2 weeks Dressin. Dressings applied today. Patient will leave intact until follow- up Discharge home with home health x 2 weeks Discharge likely this afternoon but pending PT/OT and pain controlAnd vital signs stabilization Follow up as scheduled with [facility] in 2 weeks I, Dr. Meadows, saw and examined the patient and discussed the management with my PA. I reviewed my PAs note and agree with the documented findings and the plan of care I developed. Patient still requiring IV pain medicine to control pain. Patient was also nauseous and light headed working with PT today. Admission and Anticipated Discharge Date Admission Date: May 06, 2022 Subjective This 61-year-old female is day 2 status post right total knee arthroplasty. She states that yesterday she did have some episodes of hypotension especially after attempting physical therapy. She was given a fluid bolus. This morning her vitals are within normal limits. Patient states that she hopes to be able to be discharged home today, however I advised her that we will continue to monitor her vitals and if they continue to stay in a normal range we will consider discharging her this afternoon, however if they do drop again we will need to keep her overnight. Currently she denies any significant pain. She states is well controlled with p.o. pain medication. She wonders if we can switch her to something that is not as strong as the oxycodone because she feels that that may have attributed to her drop in pressure. Currently she denies chest pain, shortness of breath, fever, chills, sweats, lethargy, numbness or tingling in her right lower extremity. She states she has been able to void without difficulty but is yet to move her bowels. Review of Systems Review of Systems: All systems reviewed & are unremarkable except as noted in Subjective Physical Exam Physical Exam: Knee: Outer dressing is removed. Zipper line and shield are intact. There is some slight seepage of blood from the distal portion of the incision site. I did clean this and patted dry and no further discharge was noted. I applied to Silverlon dressings over the incision site. Patient had difficulty performing an active straight leg raise test but was able to do an active assisted 1. She is able to actively dorsi and plantarflex her foot without difficulty. She did have some lateral joint line tenderness when the knee was palpated. Active range of motion was from 0 degrees of extension to about 70 degrees of flexion. Patient was neurovascular intact in the right lower extremity. Quad strength was 2+ to 3 out of 5 Results & Data ([facility]) Vital Signs (Past 12 Hours) Vital Signs Temp Pulse Resp BP Pulse Ox 05/08/22 07:56 36.7 C 77 16 111/73 96 Diagnostic Findings Laboratory Results WBC 6.03 K/uL (4.8-10.8) 05/08/22 06:26 RBC 3.43 M/uL (4.2-5.4) L 05/08/22 06:26 Hgb 10.7 g/dL (12.0-16.0) L 05/08/22 06:26 Hct 31.0 % (37-47) L 05/08/22 06:26 MCV 90.4 fL (80-100) 05/08/22 06:26 MCH 31.2 pg (25-34) 05/08/22 06:26 MCHC 34.5 g/dL (32-36) 05/08/22 06:26 RDW Std Deviation 42.1 fL (36.4-46.3) 05/08/22 06:26 RDW Coeff of Georgina 12.7 % (11.5-14.5) 05/08/22 06:26 Plt Count 152 K/uL (130-400) 05/08/22 06:26 MPV 10.5 fL (7.4-10.4) H 05/08/22 06:26 Immature Gran % (Auto) 0.2 % 05/08/22 06:26 Neut % (Auto) 72.0 % 05/08/22 06:26 Lymph % (Auto) 13.3 % 05/08/22 06:26 Buchanan % (Auto) 13.3 % 05/08/22 06:26 Eos % (Auto) 1.0 % 05/08/22 06:26 Baso % (Auto) 0.2 % 05/08/22 06:26 Neut # (Auto) 4.35 K/uL (1.4-6.5) 05/08/22 06:26 Lymph # (Auto) 0.80 K/uL (1.2-3.4) L 05/08/22 06:26 Buchanan # (Auto) 0.80 K/uL (0.11-0.59) H 05/08/22 06:26 Eos # (Auto) 0.06 K/uL (0-0.5) 05/08/22 06:26 Baso # (Auto) 0.01 K/uL (0-0.2) 05/08/22 06:26 Immature Gran # (Auto) 0.01 K/uL (0.00-0.02) 05/08/22 06:26 Sodium 132 mmol/L (136-145) L 05/07/22 05:46 Potassium 4.4 mmol/L (3.5-5.1) 05/07/22 05:46 Chloride 104 mmol/L (98-107) 05/07/22 05:46 Carbon Dioxide 25 mmol/L (21-32) 05/07/22 05:46 Anion Gap 3 (3-11) 05/07/22 05:46 BUN 13 mg/dl (6-23) 05/07/22 05:46 Creatinine 0.63 mg/dl (0.6-1.2) 05/07/22 05:46 Est Cr Clr Drug Dosing 105.5 ml/min 05/07/22 05:46 Est GFR ( Amer) 110.6 ml/min 05/07/22 05:46 Est GFR (Non-Af Amer) 95.5 ml/min 05/07/22 05:46 BUN/Creatinine Ratio 20.6 (10-20) H 05/07/22 05:46 Glucose 110 mg/dl (70-99(Fasting)) H 05/07/22 05:46 Calcium 8.3 mg/dl (8.5-10.1) L 05/07/22 05:46 Troponin I High Sens 9.2 pg/ml (0-14) 05/07/22 18:50 SARS-CoV-2, RNA, NAAT NEGATIVE (NEGATIVE) 05/06/22 08:00 Blood Type O Positive 05/06/22 07:57 Antibody Screen NEGATIVE 05/06/22 07:57 Impressions Knee X-Ray 05/06/22 13:58 TWO VIEWS RIGHT KNEE CLINICAL HISTORY: Postoperative examination. FINDINGS: AP and crosstable lateral portable views of the right knee are obtained. A right knee arthroplasty is in near anatomic alignment. There has been undersurface remodeling of the patella. No acute fracture is seen. Soft tissue edema and subcutaneous gas are expected postoperative changes. IMPRESSION: Expected postoperative changes status post right knee arthroplasty. No acute fracture is seen. ACT 112: Negative or not required by law. Electronically signed by: Gonzalo Nesbitt M.D. 05/06/2022 2:35 PM
[2022-05-08] MEDS ORDERED: traMADol HCL 50 MG TABLET PO PRN (12:45)
[2022-05-08] MEDS ORDERED: CYCLOBENZAPRINE HCL 5 MG TAB PO PRN (13:50)
--- NOTE | 2022-05-08 14:03 | Discharge Summary ---
Date of Service May 08, 2022 Admission HPI Per Admitting Provider Pt was seen and examined bedside. POD #2 s/p total knee arthroplasty. Pt was admitted two nights for observation due to episodes of hypotension and for pain control. Pt was given two 1L fluid boluses. Anesthesia and medicine was consulted and deemed hypotension most likely from post op dehydration. Cardiac work up negative. H/H stable. Vitals are stable. Labs unremarkable. X-rays show normal post operative changed. Pt reports they are doing well and pain is controlled. They are tolerating PO intake and voiding adequate amounts. Working well with PT/OT. Pt denies F/C, N/V/D, SOB, CP. Pt deemed medically stable and ready for discharge. Principal Diagnosis right knee osteoarthritis Discharge Exam General: Pt laying in hospital bed AA&O, in NAD, calm and cooperative during exam Lower Extremity: Dressing in tact and not saturated. Pt has full ROM of ankle and all 5 digits. Pt has 5/5 strength with resisted DF/PF. SLR difficult this morning for pt. Calf supple and non tender. NVI with sensation to light touch distally and good distal pulses present. Lower extremity noted to have good color and temperature with no signs of vascular or lymphatic insufficiency. Dressing taken down to reveal incision that was well approximated with no signs of infection. Silverlon was applied. Discharge Data Allergies Allergy/AdvReac Type Severity Reaction Status Date / Time nitrofurantoin Allergy Unknown Rash Verified 05/06/22 08:12 [From Macrobid] fentanyl AdvReac Severe hallucinati Verified 05/06/22 08:12 ons Penicillins AdvReac Mild GI UPSET - Verified 05/06/22 08:12 HAPPENED A CHILD Sulfa (Sulfonamide AdvReac Mild GI upset Verified 05/06/22 08:12 Antibiotics) lactose AdvReac Unknown SENSITIVITY Verified 05/06/22 08:12 TO MILK Consultations 05/07/22 16:54 Consult Hospitalist Routine Procedures Performed Operation Date: 05/06/22 10:20 Actual Procedures p Right Total Knee Arthroplasty(Right) - Jeffrey Meadows MD Ordered Studies 05/06/22 05:00 US - OR guided needle placemen Routine Hospital Course (1) Osteoarthritis of right knee: POD2 s/p total knee arthroplasty WBAT with walker PT/OT Diet - regular Frequently ice and elevate with blankets stacked under ankle DVT prophylaxis: ASA 81mg BID x 6 weeks, TEDS x 3 weeks, foot pumps while in hospital Pain control: Tylenol 1000mg q 8hrs, tramadol 50 mg q4-6 hrs for moderate pain, Dilaudid 0.5mg IV for severe/breakthrough pain Vitamin C and Iron supplementation BID x 2 weeks Dressing: Patient will leave intact until follow-up Discharge home with home health x 2 weeks Follow up as scheduled with [facility] in 2 weeks . Total Time Total Time Spent Total Time Spent (In Minutes): 45 minutes Discharge Plan Discharge Items Patient Disposition: Home - Home Health Services Reason For Visit: POST OP RIGHT TOTAL KNEE Discharge Diagnosis: Status post right total knee arthroplasty Activity: As commented below Lifting: None Bathing: Keep incision dry Bathing Comment: May shower tomorrow Sexual Activity: Wait until after follow-up appointment Exercise/Sports: Wait until after follow-up appointment Driving/Machine Use: No driving until cleared by funding specialist Weightbearing: Right weightbearing Weightbearing Comment: As tolerated with walker assistance Non-emergency contact: Surgeon Call non-emergency contact if: you have any medication questions, your pain is not controlled, your temperature is above 101.5, your wound has increased drain age and your wound pain has increased Follow-up/Referrals: Tri Joe MD [Primary Care Provider] - Diet: Regular Addtl Attending Provider Instructions: Post-operative Instructions Dear Patient and Family/Friends, Before you are discharged from the hospital, it is important to know what to expect when you get home after surgery. To that end, we have created this sheet of discharge instructions which covers many commonly asked questions. Make sure you go through this sheet in its entirety with your nurse before you are discha rged. Please note that we will go over the specifics of your surgery and recovery when you return for your first post-operative visit Medications 1. Tramadol 50 mg: Take 1 tab to 2 tablets every 4-6 hours as needed for pain control. A prescription for this medication will be sent to your pharmacy. 2. Celebrex 200 mg: Take 1 tab twice daily for the first 2 weeks posto peratively, then 1 tablet daily for 2 additional weeks. This will help with pain and inflammation. A prescription will be sent to your pharmacy. 3. Extra strength Tylenol 500 mg: Take 2 tablets every 6-8 hours as needed for additional pain. Please purchase this medication. 4. Vitamin C: Take 1 tablet Twice daily for the first 2 weeks postoperatively. This will be sent to your pharmacy. 5. Iron: Take 1 tablet twice daily for the first 2 weeks postoperatively. This will also be sent to pharmacy. Pain Expect to be in a fair amount of pain after surgery. Remember, our goal is not to eliminate your pain, but to make it tolerable. It is a good idea to stay ahead of your pain by taking the medications you were prescribed once you get home. Typically, the pain starts improving 3-7 days after surgery. You should start weaning off the narcotic pain medication (oxycodone, hydrocodone, hydromorphone, morphine) as soon as your pain improves. Please call our office if your pain is not adequately controlled. Ice Ice your operative site at least 5 times a day for 15-30 minutes at a time. Make sure you have a thin cloth between the ice or cooling unit and your skin to prevent gay bite. This is especially important if you received a nerve block. Continue icing your operative site for the first 5-7 days after surgery, then as needed. Diet/Nausea/Vomiting Start by drinking clear liquids and eating crackers. If you can tolerate this, then you may resume your normal diet. If you feel nauseated or vomit, take Zofran/ondansetron (if prescribed). Please call our office if you have intractable nausea or vomiting, or, if after hours, you may go to the Emergency Room for help. Constipation Constipation is a common side effect of narcotic pain medication. If you have not had a bowel movement within 2 days after surgery, we recommend purchasing an over the counter laxative such as Milk of Magnesia, Dulcolax, or Miralax from a local pharmacy, and taking it as instructed. Call our clinic if any questions. Nerve block The anesthesia team sometimes places a nerve block to help with post-operative pain control. This results in significant numbness and inability to move the extremity. The nerve block usually wears off in 8-12 hours, but sometimes can last up to 24 hours. Please call our office if you are still unable to move your extremity after 24 hours, unless you received a pain pump to take home. Nerve blocks typically wear off quickly, so start taking pain medication as soon as you start feeling soreness near your surgical site. Weight bearing and Range of Motion. Do not bear any weight through your operative extremity immediately after surgery. If you had upper extremity surgery, do not lift anything with that arm. If you are in a knee brace, keep it locked in place until your follow-up. We will discuss your weight bearing, range of motion, and lifting restrictions in detail at your first post-operative appointment. Continuous Passive Motion (CPM) Machine If you were prescribed a CPM machine, it will start after your first post- operative appointment, at which time we will give you instructions on the range of motion settings and duration of treatment Physical therapy You will be given a prescription for physical therapy or occupational therapy at your first post-operative appointment. Typically, patients start therapy within 1 week of surgery Wound care and showering We will inspect your wound at your first post-operative visit, and may do a dressing change at that time. Most patients will be in a water-proof dressing that is removed 14 days after surgery. It is normal to see some dried blood on the dressing. Do not remove your dressing, paper strips or sutures yourself unless you are given permission. Showering is allowed the day after surgery. Do not scrub or remove any dressings. The wound should not be submerged underwater (i.e. in a bathtub or pool) until 4 weeks after surgery JESSICA stockings If you were given white stockings, these are to be worn at all times except to shower (on both legs) for the first 2 weeks after surgery. Return to Work Your return to work depends on what surgery was done and what type of work you do. Please bring any paperwork your employer needs completed to your first post-operative visit. Also, bring a description of your job duties, as this helps us to understand what risks you may face at work. Travel Avoid long distance travel (greater than 1 hour) in airplanes and cars for the first 6 weeks after surgery. If you must travel, you need to have a Doppler ultrasound done before you travel to rule out a blood clot in your legs. Follow-up You should have a follow-up appointment already scheduled after surgery. If not, please contact our office to make this appointment before you leave the hospital. When to call the office It is normal to have swelling and bruising in the limb that was operated on. This will improve with time. It is also normal to have fevers for the first 2 days after surgery. Reasons you should call your doctor include: Uncontrolled pain; Nausea, vomiting, or constipation that does not improve with medication; Fevers over 101.5, chills, sweats; Drainage or bleeding from the wound; Foul odor; Spreading areas of redness; Any other concerns Pending Studies at Discharge: No Stand-Alone Forms: [facility], Smoking Cessation Medications and DC Order Prescriptions: New aspirin 81 mg Tablet,Delayed Release (Dr/Ec) 81 mg PO BID 42 Days Qty: 84 RF: 0 acetaminophen [Tylenol Extra Strength] 500 mg Tablet 1,000 mg PO Q8H PRN (Reason: pain) 30 Days RF: 0 ascorbic acid (vitamin C) [Vitamin C] 500 mg Tablet 500 mg PO BIDM 14 Days Qty: 28 RF: 0 ferrous gluconate 324 mg (38 mg iron) Tablet 324 mg PO BIDM 14 Days Qty: 28 RF: 0 tramadol 50 mg tablet 50 mg PO Q4H Qty: 30 RF: 0 celecoxib [Celebrex] 200 mg capsule 200 mg PO BID 28 Days Qty: 56 RF: 0 Continued ascorbic acid (vitamin C) 1,000 mg tablet 1,000 - 2,000 mg PO QAM RF: 0 fluticasone propionate [Flonase Allergy Relief] 50 mcg/actuation sp ray,suspension 1 sprays INTNAS QAM PRN (Reason: Congestion) RF: 0 multivitamin capsule 1 cap PO QPM RF: 0 calcium phos,dibas-vitamin D3 77-400 mg-unit Tablet PO RF: 0 magnesium citrate 100 mg Tablet 400 mg PO QAM RF: 0 riboflavin (vitamin B2) 400 mg Tablet 400 mg PO QAM RF: 0 Ubrelvy 100 mg Tablet 100 mg PO QAM PRN (Reason: migraines) RF: 0 levothyroxine [Synthroid] 75 mcg tablet 75 mcg PO QAM RF: 0 Discharge Orders: Discharge Order (Routine); Ordered 05/08/22 Ordered By: Rebecca Stoll Admission Data Admit Date/Time: 05/06/22 13:54 Attending Provider: Jeffrey Meadows Admit Provider: Jeffrey Meadows Primary Care Provider: Tri Joe Other Providers: [facility] ; Gertrude Moss ; Andree Jensen ; Keshawn Jaime
--- NOTE | 2022-05-08 14:05 | Hospitalist Progress Note ---
Date of Service May 08, 2022 Assessment & Plan (1) Postoperative hypotension: Plan: Stop LR. Drowsy presumably from Flexeril and increased activity today when seen. Counselled on sitting/lying down if she feels lightheaded at home. Hgb stable. BP appears more stable today. Medically stable for discharge. Pending orthopedic discharge. Admission and Anticipated Discharge Date Admission Date: May 06, 2022 Subjective No concerns of questions. No lightheadedness, chest pain or shortness of breath. Review of Systems Review of Systems: All systems reviewed & are unremarkable except as noted in Subjective Physical Exam 2 Constitutional: WD/WN, vitals as above Respiratory: normal respiratory effort, lungs clear to auscultation Cardiovascular: Rate/Rhythm: regular rate Heart Sounds: + murmur Extremities: normal capillary refill; no pedal edema Gastrointestinal (Abdomen): normal bowel sounds, soft, nontender, no hepatosplenomegaly Results & Data Results & Data ([facility]) Vital Signs (Past 12 Hours) Vital Signs Temp Pulse Resp BP Pulse Ox 05/08/22 07:56 36.7 C 77 16 111/73 96 PG Care Time/CCT Total # of Minutes Spent Total Time Spent with Patient: Total time spent is greater than 50% in coordination of care (as documented) at patient's floor/unit and/or counseling patient: Coding Level of Care Code 75346 Office/OBS Consult Lvl 3 Diagnoses Postoperative hypotension I95.81
--- NOTE | 2022-05-09 05:53 | Electrocardiogram Report ---
Test Reason : Blood Pressure : / mmHG Vent. Rate : 074 BPM Atrial Rate : 074 BPM P-R Int : 172 ms QRS Dur : 080 ms QT Int : 378 ms P-R-T Axes : 058 030 059 degrees QTc Int : 419 ms Normal sinus rhythm Normal ECG When compared with ECG of 29-APR-2022 10:59, No significant change was found Confirmed by Juan M Padilla ([id number]) on 05/09/2022 5:53:26 AM Referred By: Jeffrey Meadows Confirmed By:Juan M Padilla
== END 2022-05-08 16:33 | disposition home health service (06) ==
LOC: 3E 07:35 → ASU 07:35
DX: M65.9 Synovitis and tenosynovitis, unspecified; E03.9 Hypothyroidism, unspecified; M17.11 Unilateral primary osteoarthritis, right knee; Z88.1 Allergy status to other antibiotic agents; M65.88 Other synovitis and tenosynovitis, other site; E78.5 Hyperlipidemia, unspecified; Z79.899 Other long term (current) drug therapy; Z01.818 Encounter for other preprocedural examination; Z01.810 Encounter for preprocedural cardiovascular examination; J45.909 Unspecified asthma, uncomplicated; Z01.812 Encounter for preprocedural laboratory examination

== ENCOUNTER 2024-06-28 05:14 | Observation (INO) ==
--- NOTE | 2024-05-26 11:26 | PAT Medication Instructions ---
Medication Instructions Date of Service May 26, 2024 Home Medications Medication Instructions Recorded Synthroid 75 mcg tablet 75 mcg PO QAM #90 tabs 05/02/24 (levothyroxine) fluticasone propionate 50 mcg/actuation nasal spray,suspension (Flonase Allergy Relief) 1 sprays intranasal QAM PRN Congestion multivitamin 1 cap PO QPM ascorbic acid (vitamin C) 1,000 mg tablet 1,000 - 2,000 mg PO HS magnesium citrate 100 mg tablet 400 mg PO HS cyclobenzaprine 5 mg tablet 5 mg PO TID PRN muscle spasms vitamin B complex 1 tab PO HS Pancreatin 10 2,000 units PO HS hydroxyzine HCl 25 mg tablet 25 mg PO TID PRN itching/anxiety Synthroid 75 mcg tablet (levothyroxine) 75 mcg PO QAM albuterol sulfate 90 mcg/actuation aerosol inhaler 2 puff inhalation QID PRN sob DO NOT take the morning of surgery hydroxyzine HCl 25 mg tablet 25 mg PO TID PRN itching/anxiety Take morning of surgery With a small sip of water, OTHERWISE NOTHING TO EAT OR DRINK AFTER MIDNIGHT: fluticasone propionate 50 mcg/actuation nasal spray,suspension (Flonase Allergy Relief) 1 sprays intranasal QAM PRN Congestion (if needed) cyclobenzaprine 5 mg tablet 5 mg PO TID PRN muscle spasms (if needed) Synthroid 75 mcg tablet (levothyroxine) 75 mcg PO QAM albuterol sulfate 90 mcg/actuation aerosol inhaler 2 puff inhalation QID PRN sob (use if needed; please bring with you to hospital day of surgery if possible) Take evening before surgery multivitamin 1 cap PO QPM ascorbic acid (vitamin C) 1,000 mg tablet 1,000 - 2,000 mg PO HS magnesium citrate 100 mg tablet 400 mg PO HS cyclobenzaprine 5 mg tablet 5 mg PO TID PRN muscle spasms (if needed) vitamin B complex 1 tab PO HS hydroxyzine HCl 25 mg tablet 25 mg PO TID PRN itching/anxiety (if needed) albuterol sulfate 90 mcg/actuation aerosol inhaler 2 puff inhalation QID PRN sob (if needed) Pancreatin 10 2,000 units PO HS Other Notes If you have any questions please call us at [phone] or [phone] or [phone] or [phone]
--- NOTE | 2024-06-03 09:52 | Anesthesiology Consultation ---
Date of Service June 03, 2024 Assessment & Plan (1) Encounter for pre-operative examination: - Infectious disease screening: Per assessment on 06/03/24: No known recent infectious disease contacts or current infectious disease symptoms. - Outpatient joint assessment: Pt currently scheduled for inpatient pathway. If surgeon requests review for outpatient joint pathway, patient is an acceptable candidate for outpatient joint program from anesthesia standpoint pending surgeon's office assessment that patient is motivated, has good support and completes [facility] preop requirements. - Cardiology visit 04/30/22: "...preop evaluation preparing for TKA...rides her bike frequently about 5 miles at a time...may feel her heart race after a particularly large meal when she lays down at night...reviewed her EKG, labs and CXR as well as anesthesia note from [facility]...unremarkable...revised cardiac risk index is 3.9% for 30 day risk of , AR or cardiac arrest putting her in the low risk category... does not need further cardiac testing prior to her procedure..." > Case reviewed with Dr. Johnson- does not feel updated cardiac evaluation and/or testing needed prior to upcoming surgery from his perspective. 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 severe rxn to Fentanyl-avoid this drug.." > Right TKA (05/06/22): SAB at L3-4 (3 attempts) + regional at [facility] - Patient acceptable risk for surgery pending surgeon-ordered PCP preop evaluation (Dr. Tri Joe, 06/14). Chart Review Chart Review: Patient seen in Pre Admission Testing Teaching & Discussion Pre-Anesthesia Teaching/Discussion Notes: Instructed NPO after midnight before surgery,except medications with 15 cc of water. Medication instructions provided according to the PAT guidelines. History Surgery Operation Date: 06/28/24 07:00 Proposed Procedures p Left Total Knee Arthroplasty - Jeffrey Meadows MD Height/Weight Height: 5 ft 11 in Weight: 86.1 kg Allergies Allergy/AdvReac Type Severity Reaction Status Date / Time nitrofurantoin Allergy Unknown Rash Verified 05/26/24 09:29 [From Macrobid] fentanyl AdvReac Severe Hallucinati Verified 05/27/24 15:21 ons oxycodone [From OxyContin] AdvReac Severe Hallucinati Verified 05/27/24 15:21 ons Penicillins AdvReac Mild GI upset Verified 05/27/24 15:21 (as child) Sulfa (Sulfonamide AdvReac Mild GI upset Verified 05/26/24 09:29 Antibiotics) lactose AdvReac Unknown Milk Verified 05/27/24 15:21 sensitivity Medications Home Medications Medication Instructions Recorded Confirmed Last Taken fluticasone propionate 50 1 sprays intranasal QAM PRN 09/21/19 05/26/24 12/07/23 mcg/actuation nasal Congestion spray,suspension (Flonase Allergy Relief) multivitamin 1 cap PO QPM 09/21/19 05/26/24 12/07/23 ascorbic acid (vitamin C) 1,000 mg 1,000 - 2,000 mg PO HS 03/28/21 05/26/24 12/07/23 tablet magnesium citrate 100 mg tablet 400 mg PO HS 04/24/22 05/26/24 12/07/23 cyclobenzaprine 5 mg tablet 5 mg PO TID PRN muscle spasms 01/22/23 05/26/24 Unknown vitamin B complex 1 tab PO HS 06/19/23 05/26/24 12/07/23 Pancreatin 10 2,000 units PO HS 12/08/23 05/26/24 12/07/23 hydroxyzine HCl 25 mg tablet 25 mg PO TID PRN itching/anxiety 12/08/23 05/26/24 Unknown Synthroid 75 mcg tablet 75 mcg PO QAM #90 tabs 05/02/24 05/26/24 Unknown (levothyroxine) albuterol sulfate 90 mcg/actuation 2 puff inhalation QID PRN sob 05/26/24 05/26/24 Unknown aerosol inhaler Past Medical History Medical History Asthma Atrial septal aneurysm Echo 07/2021: "Atrial septal aneurysm without obvious PFO" GERD (gastroesophageal reflux disease) Heart murmur Echo 07/2021 (indication heart murmur): Mild TR. Atrial septum aneurysm without obvious PFO detected. History of anemia Per records, patient unaware Hx of Tom thyroiditis Hyperlipidemia Lyme disease ~2014, treated, denies residual problems Migraine Hx Osteoarthritis of right knee Seasonal allergies Exercise / Class Metabolic Activity II 4-5 Yardwork/Stairs/Walk up hill (one FS: No CP, no SOB) Past Family History Family History Mother Hypertension Grandmother (Maternal) Family hx of colon cancer Past Surgical History Surgical History H/O bladder repair surgery x3 H/O knee surgery Rx3, Lx2 H/O myomectomy Fibroid H/O: hysterectomy History of anesthesia reaction Post-op hypotension Awareness with bladder surgery History of bilateral tubal ligation History of colonoscopy History of esophagogastroduodenoscopy (EGD) History of repair of rotator cuff Right History of total right knee replacement Right TKA (05/06/22): SAB at L3-4 (3 attempts) + regional at [facility] Hx of tonsillectomy S/P hernia repair Age 6 months old Past Anesthesia History No Family Hx of Anesthesia Complications and Other (Post-op hypotension with Right TKA, Awareness with bladder surgery) History of PONV No Hx of PONV and Hx of Motion Sickness Social History Smoking Status: Never smoker Do You Dip or Chew Tobacco: No Hx Alcohol Use: Yes Alcohol type: wine alcohol intake frequency: 0-2 drinks per day (2 glasses wine/day) Hx Substance Use: No substance use type: does not use Review of Systems Patient denies chest pain, shortness of breath, dyspnea on exertion, fever, chills, cough, wheezing, palpitations. Physical Exam Vital Signs BP 101/68 P 65 TEMP 98.8 SP02 95%RA RESP 18 Physical Full cervical extension range of motion. Full TMJ range of motion. TMD >3.5 finger breaths Mallampati Score 3 Dentition: missing sides/molars, root canal repair, + dental restorations Lungs: clear throughout to auscultation Cardiac: regular rate and rhythm, no murmurs noted Spine: normal Carotid arteries: negative bruit Extremities: no LE edema Lab Results Anesthesia Preop Results Results Anesthesia Widget: WBC 2.08 K/ul (4.8-10.8) L 06/03/24 Hgb 13.7 g/dl (12.0-16.0) 06/03/24 Hct 39.2 % (37.0-47.0) 06/03/24 Plt 194 K/uL (130-400) 06/03/24 Na 135 mmol/L (136-145) L 06/03/24 K 4.2 mmol/L (3.5-5.1) 06/03/24 Cl 102 mmol/L (98-107) 06/03/24 CO2 28 mmol/L (21-32) 06/03/24 BUN 11 mg/dl (6-23) 06/03/24 Creat 0.65 mg/dl (0.6-1.2) 06/03/24 Glucose Level 104 mg/dl (70-99(Fasting)) H 06/03/24 PT 10.9 Seconds (9.0-12.0) 06/03/24 PTT 25 Seconds (21-31) 06/03/24 INR 1.0 (0.9-1.1) 06/03/24 Urine Color Yellow 06/03/24 Urine Appearance Clear (Clear) 06/03/24 Urine pH 7.0 (4.5-7.5) 06/03/24 Urine Specific [place] 1.007 (1.000-1.030) 06/03/24 Urine Protein Negative (Negative) 06/03/24 Urine Glucose (UA) Negative (Negative) 06/03/24 Urine Ketones Negative (Negative) 06/03/24 Urine Blood Negative (Negative) 06/03/24 Urine Nitrite Negative (Negative) 06/03/24 Urine Bilirubin Negative (Negative) 06/03/24 Urine Urobilinogen Negative (Negative) 06/03/24 Urine Leukocyte Esterase Negative (Negative) 06/03/24 Blood Type O Positive 06/03/24 Antibody Screen NEGATIVE 06/03/24 Testing Laboratory Results *Chronic/intermittent leukopenia with fluctuating levels dating back to 2018- Preop testing forwarded to PCP for continuity of care* Electrocardiogram Date: 06/03/24 NSR at 61bpm. MYRIAM. No significant change compared to 05/07/2022 per finishing operator comparison. Chest X-Ray Date: 06/03/24 FINDINGS: Lung volumes are normal. Lungs are clear. There is no pneumothorax or pleural effusion. Cardiac size is normal. Mediastinal contours are normal. There is no evidence for pulmonary edema. IMPRESSION: No acute cardiopulmonary findings. Echocardiogram Date: 08/06/21 EF 65% Normal LV size, wall thickness, systolic function with no regional wall motion abnormalities Type 1 diastolic dysfunction Atrial septum aneurysm without obvious PFO [place] aortic valve with trace aortic regurgitation Mild tricuspid regurgitation Other Testing Abdomen/Pelvis CT Date: 12/17/23 IMPRESSION: No acute infectious or inflammatory findings are identified in the abdomen or pelvis.
[2024-06-28] MEDS: LR 500ML BOLUS, THEN 15ML/HR IV SCH (05:35)
[2024-06-28] MEDS: VANCOMYCIN HCL 1,250 MG in SODIUM CHLORIDE 0.9% 250 ML IV SCH ×2 (05:35→17:33)
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
[2024-06-28] MEDS: LR 60ML/HR IV SCH (05:44)
[2024-06-28] MEDS ORDERED: BUPIVACAINE 0.5 % 5 MG/1 ML PF 10ML VIAL ONE (06:23)
[2024-06-28] MEDS ORDERED: ROPIVACAINE 0.5% 5 MG/ML 30 ML VIAL ONE (06:23)
--- NOTE | 2024-06-28 06:33 | History & Physical Bridge Note ---
Date of Service June 28, 2024 History & Physical Bridge Note I have examined the patient, reviewed the History & Physical and in the interval since the performance of the History & Physical I have noted the following changes of clinical significance: no changes noted
[2024-06-28] MEDS ORDERED: fentaNYL citrate PF 100 MCG/2 ML VIAL IV PRN (06:43)
[2024-06-28] MEDS ORDERED: KETOROLAC 30 MG/ML VIAL IV PRN (06:43)
[2024-06-28] MEDS ORDERED: ATROPINE SULFATE 0.1 MG/ML 10ML SYR IV PRN (06:43)
[2024-06-28] MEDS ORDERED: ONDANSETRON INJ 2 MG/ML 2 ML VIAL IV PRN ×2 (06:43→11:35)
[2024-06-28] MEDS ORDERED: ePHEDrine sulfate 50 MG/ML AMP IV PRN (06:43)
[2024-06-28] MEDS ORDERED: MIDAZOLAM HCL 1 MG/ML 2ML VIAL ONE ×2 (06:44→07:23)
[2024-06-28] MEDS: TRANEXAMIC ACID 1,000 MG **IV Pre-op IV SCH (06:49)
[2024-06-28] MEDS ORDERED: PROPOFOL IV EMULSION 10 MG/ML 20 ML VIAL IV ONE ×8 (06:51→09:54)
[2024-06-28] MEDS ORDERED: LIDOCAINE 2% 2 ML VIAL/AMP(20MG/ML) INFIL ONE (06:51)
[2024-06-28] MEDS ORDERED: GLYCOPYRROLATE 0.2 MG/ML VIAL ONE (07:22)
[2024-06-28] MEDS ORDERED: ONDANSETRON INJ 2 MG/ML 2 ML VIAL ONE (07:23)
[2024-06-28] MEDS: ROPIV 0.5% 246mg, Ketorolac 30mg, EPINEPHrine 0.5mg in NSS INFIL ONE (07:54)
[2024-06-28] MEDS ORDERED: PHENYLEPHRINE 100MCG/ML 10ML SYR IV ONE (07:58)
[2024-06-28] MEDS ORDERED: PHENYLEPHRINE HCL 10 MG/ML VIAL ONE (08:19)
[2024-06-28] MEDS: ORTHO JOINT ANESTHETIC ONE (09:28)
[2024-06-28] MEDS: TRANEXAMIC ACID 1,000 MG **IV Intra-op IV SCH (09:33)
--- NOTE | 2024-06-28 10:06 | Post Operative Brief Note ---
Immediate Post Op Note Date of Surgery June 28, 2024 Pre & Post Diagnosis Operation Date: 06/28/24 07:00 Pre-Op Diagnosis: Left Knee Osteoarthritis Post-Op Diagnosis: Left Knee Osteoarthritis Left patellar tendon tear I identified the patient and participated in the time-out.: Yes Procedure Operation Date: 06/28/24 07:00 Actual Procedures p Left Total Knee Arthroplasty, Left partial patellar tendon repair.(Left) - Jeffrey Meadows MD Surgeon Jeffrey Meadows MD Tier Lift Truck Operator Canelo Turner PA-C (No fellow avail) Estimated Blood Loss 75 Findings Consistent with Post-Op Diagnosis Fluids 1200 cc Specimens left knee contents Anesthesia Type MAC Spinal Regional Complications Patellar tendon partial tear
--- NOTE | 2024-06-28 10:09 | Operative Report ---
Post Operative Report Pre & Post Diagnosis Operation Date: 06/28/24 07:00 Pre-Op Diagnosis: Left Knee Osteoarthritis Post-Op Diagnosis: Left Knee Osteoarthritis I identified the patient and participated in the time-out.: Yes Procedure Operation Date: 06/28/24 07:00 Actual Procedures p Left Total Knee Arthroplasty, Left partial patellar tendon repair.(Left) - Jeffrey Meadows MD Surgeon Jeffrey Meadows MD Crushing Machine Operator Canelo Turner PA-C (No fellow avail) Estimated Blood Loss 75 Findings See Below Fluids 1200 cc Specimens left knee contents Complications Left patellar tendon partial tear I attest to the content of the Intraoperative Record and any orders documented therein. Any exceptions are noted below.
--- NOTE | 2024-06-28 11:11 | XRay Report ---
XR knee LT 1 or 2V routine HISTORY: 64 years-old Female Surgical Post Op left knee arthroplasty COMPARISON: 04/19/2024 TECHNIQUE: 2 views of the left knee FINDINGS: Total joint arthroplasty with patellar resurfacing. Hardware again noted within the tibial tuberosity . Expected postoperative soft tissue swelling with deep tissue air. No acute fracture, dislocation or unexpected opaque foreign body. IMPRESSION: Total joint arthroplasty with expected postoperative changes. ACT 112: Negative or not required by law. The above report was generated using voice recognition software. It may contain grammatical, syntax o r spelling errors. Electronically signed by: Michael Wilkes M.D. 06/28/2024 11:10 AM
[2024-06-28] MEDS ORDERED: ALBUTEROL HFA 8 GM INHALER INH PRN (11:35)
[2024-06-28] MEDS ORDERED: FLUTICASONE PROPIONATE NA SPR 16 GM BTL NAE PRN (11:35)
[2024-06-28] MEDS ORDERED: HYDROmorphone INJ 1 MG/ML SYRINGE IV PRN (11:35)
[2024-06-28] MEDS ORDERED: NALOXONE HCL 0.4 MG/1 ML VIAL/CARP IV PRN (11:35)
[2024-06-28] MEDS ORDERED: hydrOXYzine HCl 25 MG TAB PO PRN (11:35)
[2024-06-28] MEDS ORDERED: HYDROmorphone INJ 0.5 MG/0.5 ML SYR IV PRN (11:35)
[2024-06-28] MEDS ORDERED: VANCOMYCIN CONSULT ACTIVE PRN (11:35)
[2024-06-28] MEDS ORDERED: diphenhydrAMINE 50 MG/ML VIAL IV PRN (11:35)
[2024-06-28] MEDS ORDERED: CYCLOBENZAPRINE HCL 5 MG TAB PO PRN (11:35)
[2024-06-28] MEDS ORDERED: METOCLOPRAMIDE HCL INJ 5 MG/ML 2 ML VIAL IV PRN (11:35)
[2024-06-28] MEDS: SODIUM CHLORIDE 0.9% 1,000 ML IV SCH (12:01)
[2024-06-28] MEDS: KETOROLAC TROMETHAMINE 15 MG/ML VIAL IV SCH (12:30)
--- NOTE | 2024-06-28 12:45 | Anesthesiology Progress Note ---
Date of Service June 28, 2024 Anesthesia Post Procedure Vital Signs Vital Signs: Temp Pulse Pulse Resp BP BP Pulse Ox 06/28/24 12:31 36.4 C L 61 18 124/75 100 06/28/24 12:04 36.5 C 59 L 18 107/68 100 06/28/24 11:38 06/28/24 11:30 36.4 C L 70 16 110/70 98 06/28/24 11:15 60 14 108/71 97 06/28/24 11:05 36.4 C L 68 12 113/73 95 06/28/24 10:55 70 16 112/68 97 06/28/24 10:45 80 12 115/68 96 06/28/24 10:35 74 12 114/67 96 06/28/24 10:25 36.6 C 82 16 108/66 97 06/28/24 05:38 36.5 C 78 20 124/77 97 O2 Del Method O2 Flow Rate 06/28/24 12:31 Room Air 06/28/24 12:04 Room Air 06/28/24 11:38 Room Air 06/28/24 11:30 Room Air 06/28/24 11:15 Nasal Cannula 2 06/28/24 11:05 Nasal Cannula 2 06/28/24 10:55 Nasal Cannula 2 06/28/24 10:45 Nasal Cannula 2 06/28/24 10:35 Room Air 06/28/24 10:25 Room Air 06/28/24 05:38 Room Air Pain Intensity Lower Medial Chest: Pain Intensity: 6 Left Leg: Pain Intensity: 0 Transfer of Care Handoff Completed per policy Notes Mental Status: alert / awake / arousable Patient Amnestic to Procedure: Yes Nausea / Vomiting: adequately controlled Pain: adequately controlled Airway Patency, RR, SpO2: stable & adequate BP & HR: stable & adequate Hydration State: stable & adequate Anesthetic Complications: no major complications apparent
[2024-06-28] MEDS: traMADol HCL 50 MG TABLET PO PRN (13:52)
--- NOTE | 2024-06-28 14:35 | Operative Report ---
Post Operative Report Pre & Post Diagnosis Operation Date: 06/28/24 07:00 Pre-Op Diagnosis: Left Knee Osteoarthritis Post-Op Diagnosis: Left Knee Osteoarthritis I identified the patient and participated in the time-out.: Yes Procedure Operation Date: 06/28/24 07:00 Actual Procedures p Left Total Knee Arthroplasty, Left partial patellar tendon repair.(Left) - Jeffrey Meadows MD Surgeon Jeffrey Meadows M.D. Barrel Cutter Canelo Turner PA-C (No fellow avail) Estimated Blood Loss 75 Findings Consistent with Post-Op Diagnosis Fluids partial patellar tendon tear Specimens bone and soft tissue Anesthesia Type MAC Spinal Regional Description of Procedure Patient was taken to the operating room and placed under IV sedation with spinal anesthesia and a peripheral nerve block. She was given 1250 mg of vancomycin preoperatively. She was given 1 g of TXA preoperatively. I was present during the entire case and assisted with positioning, tissue retraction, hemostasis, trialing of implants, implantation of hardware and cementing, closure and dressings. Please see Dr. Meadows's operative report for further details regarding today's procedure. Patient was awakened and transferred to recovery room in stable condition. I attest to the content of the Intraoperative Record and any orders documented therein. Any exceptions are noted below.
[2024-06-28] MEDS: ACETAMINOPHEN 500 MG TAB PO SCH (15:14)
--- NOTE | 2024-06-28 16:46 | Orthopedic Progress Note ---
Date of Service June 28, 2024 Assessment & Plan (1) Osteoarthritis of left knee: Present on Admission?: Yes Plan POD #0 s/p s/p L TKA, with partial patellar tendon repair, doing as well as expected. Resume diet. WBAT with brace locked in extension ROM 0-30 degrees week1-2. OOB to chair. Continue pain control. Check labs tomorrow. DVT prophylaxis: TEDs 3 weeks, foot pumps while in hospital, ASA 81 mg BID for 6 weeks. PT/OT. D/C planning. Admission and Anticipated Discharge Date Admission Date: June 28, 2024 Subjective Left knee pain, block is wearing off. Physical Exam Physical Exam: LLE: BCR < 2 sec. Sensation to light touch intact distally. Wiggling ankle and toes. Calf soft and non-tender. Dressing is clean, dry, intact. Results & Data Vital Signs (Past 12 Hours) Vital Signs Temp Pulse Pulse Resp BP BP Pulse Ox 06/28/24 15:16 36.5 C 65 18 107/69 99 06/28/24 13:40 36.6 C 64 16 111/65 100 06/28/24 12:31 36.4 C L 61 18 124/75 100 06/28/24 12:04 36.5 C 59 L 18 107/68 100 06/28/24 11:38 06/28/24 11:30 36.4 C L 70 16 110/70 98 06/28/24 11:15 60 14 108/71 97 06/28/24 11:05 36.4 C L 68 12 113/73 95 06/28/24 10:55 70 16 112/68 97 06/28/24 10:45 80 12 115/68 96 06/28/24 10:35 74 12 114/67 96 06/28/24 10:25 36.6 C 82 16 108/66 97 06/28/24 05:38 36.5 C 78 20 124/77 97 O2 Del Method O2 Flow Rate 06/28/24 15:16 Room Air 06/28/24 13:40 Room Air 06/28/24 12:31 Room Air 06/28/24 12:04 Room Air 06/28/24 11:38 Room Air 06/28/24 11:30 Room Air 06/28/24 11:15 Nasal Cannula 2 06/28/24 11:05 Nasal Cannula 2 06/28/24 10:55 Nasal Cannula 2 06/28/24 10:45 Nasal Cannula 2 06/28/24 10:35 Room Air 06/28/24 10:25 Room Air 06/28/24 05:38 Room Air Diagnostic Findings XR knee LT 1 or 2V routine HISTORY: 64 years-old Female Surgical Post Op left knee arthroplasty COMPARISON: 04/19/2024 TECHNIQUE: 2 views of the left knee FINDINGS: Total joint arthroplasty with patellar resurfacing. Hardware again noted within the tibial tuberosity. Expected postoperative soft tissue swelling with deep tissue air. No acute fracture, dislocation or unexpected opaque foreign body. IMPRESSION: Total joint arthroplasty with expected postoperative changes. ACT 112: Negative or not required by law. The above report was generated using voice recognition software. It may contain grammatical, syntax or spelling errors. Electronically signed by: Michael Wilkes M.D. 06/28/2024 11:10 AM
[2024-06-28] MEDS: ASCORBIC ACID 500 MG TAB PO SCH (16:57)
[2024-06-28] MEDS: FERROUS GLUCONATE 324 MG TAB PO SCH (16:57)
--- NOTE | 2024-06-28 17:01 | Operative Report ---
Post Operative Report Pre & Post Diagnosis Operation Date: 06/28/24 07:00 Pre-Op Diagnosis: Left Knee Osteoarthritis Post-Op Diagnosis: Left Knee Osteoarthritis I identified the patient and participated in the time-out.: Yes Procedure Operation Date: 06/28/24 07:00 Actual Procedures p Left Total knee replacement, imageless computer assisted navigation, Left partial patellar tendon repair.(Left) - Jeffrey Meadows MD Surgeon Jeffrey Meadows MD Shirt Bander Canelo Turner PA-C (No fellow avail) Estimated Blood Loss 75 Findings See Below Examined Under Anesthesia: ROM -- There was 5 degrees to 135 degrees of flexion Ligamentous examination -- revealed stable Cherie, posterior drawer, varus and valgus stress at 0 and 30 degrees. Previous incisions well healed. [place] Grade IV changes of Patellofemoral and medial compartment, grade II- III changes lateral compartment. Specimens left knee contents Anesthesia Type MAC Spinal Regional Complications Left patellar tendon partial tear. Indications This is a 64-year-old female who has clinical and radiographic findings consistent with osteoarthritis of the a left knee, who had previous tibial tubercle realignment surgery. I recommended that a left total knee replacement be performed. The patient understands the risks of surgery, which include but not limited to: bleeding, infection, re-operation, damage to nerves and arteries, continued knee pain, knee stiffness, DVT, and . The patient understands all of these instructions and explanations, all of his questions have been satisfactorily addressed and the patient has elected to proceed. Informed consent was signed. Description of Procedure IMPLANTS: 1. Femur: Triathlon #4 Left PS. 2. Tibia: Triathlon #5 [place]. 3. Insert: Triathlon #5 x 11 mm PS X3 poly. 4. Patella: Triathlon A35 x 10 mm X3 poly. 5. [place] cement. Canelo Turner PA-C is assisting with positioning, retracting, and closure due to fellow not available. Procedure: The patient was taken to the Operating Room and placed in the supine position after spinal and adductor canal nerve block was administered. My initials and a multidisciplinary time-out were used to identify the left leg as the correct operative limb. A tourniquet was placed high in the thigh. Prior to the incision, intravenous Vancomycin was given. The left leg was then prepped and draped in a standard sterile fashion. An Esmarch was used to exsanguinate the leg and the tourniquet was inflated to 250 mmHg. The planned 20 cm incision using her previous lateral incision was curved proximally toward the midline and was created exposing the extensor mechanism. There was significant scar tissue around the patella and there was a large rent in the lateral retinaculum. A par tial tear of the lateral patellar tendon occurred while removing scar tissue to expose the patellar tendon. Using the rent in the lateral retinacula a lateral parapatellar arthrotomy was made and the patella was everted. The patella was addressed first. It was prepared by reaming from 23 mm down to 12 mm. An A35 button was found to fit best. The peg holes were made in the standard fashion. The femur was addressed next and using computer assisted OrthoAlign with 3 degrees of flexion and 0 degrees of valgus, removing 10 mm in the standard fashion for the distal cut. The cut was made and the 4-in-1 cutting block for a size 4 femur was placed. These cuts and the cuts to place the box were made in the standard fashion. Our attention was then drawn to the tibia cut with using imageless computer assisted OrthoAlign, taking 2 mm from the medial low side. There was sufficient extension and flexion gap to fit a 11 mm spacer. There was slightly larger gap laterally and 2 degree valgus cutting guide was used. Following this cut A #5 Tibial baseplate fit well. A trial with a 11 mm spacer showed excellent stability in both flexion and extension, with good ligament balance, and thumbs free patellar tracking. Range of motion of 0-135 degrees. The tibial baseplate was prepped for the keel and stem. All components were removed. 90 ml of total knee cocktail were injected into the soft tissues and periosteum. All surfaces were copiously irrigated prior to placement of the components. The femoral component followed by Tibial baseplate were cemented in place and a 11mm trial placed. Next, the patellar button was placed using the same cement. Once the cement had cured, the range of motion and stability were unchanged. The 11 mm X3 poly was placed. Again, the range o f motion and stability were unchanged The patellar tendon was repaired with #2 FiberWire with [place] fashion down the lateral side of the tear and up the middle. The same was done on the proximal portion of the tear with another #2 FiberWire and the limbs were tied together. This was repeated on the medial side only using a single #2 FiberWire, tied more centrally as the suture was run up and down the intact medial portion. There was no tension on the repair with the knee flexed 120 degrees. The tourniquet was deflated. Hemostasis was obtained. The extensor mechanism was closed with 1-0 Vicryl and 0 Stratafix with the knee bent approximately 60 degrees in a standard fashion. The peritenon and deep fascia was closed with 2-0 Vicryl. The subcutaneous layer was closed with 3-0 Vicryl. The skin was closed with Zipline and shield. The limb was cleaned and dried. 4x4 dressing was placed over top followed by ABDs, sterile Webril, and a foot to thigh Colin bandage. A hinged ROM brace was placed and locked in extension. The patient was then transferred to the Recovery Room in stable condition. The sponge and needle counts were correct. POST-OP INSTRUCTIONS: The patient will be WBAT with the brace locked in extension for 6 weeks. The patient will be admitted to the hospital. Complete 24-hour course antibiotics. Labs will be obtained during the stay. DVT prophylaxis will included aspirin for 6 weeks, TEDs, and mechanical foot pumps. The dressing will be changed postop day #2-3 and covered with a Silverlon dressing. I attest to the content of the Intraoperative Record and any orders documented therein. Any exceptions are noted below.
[2024-06-28] MEDS: VITAMIN B COMPLEX TAB PO SCH (20:39)
[2024-06-28] MEDS: SENNA 8.6 MG TAB PO SCH (20:40)
[2024-06-28] MEDS: MAGNESIUM OXIDE 400 MG TAB PO SCH (20:40)
[2024-06-28] MEDS: ASPIRIN 81 MG ECTAB PO SCH (20:40)
[2024-06-28] MEDS: DOCUSATE SODIUM 100 MG CAP PO SCH (20:40)
[2024-06-28] MEDS ORDERED: PANCREATIN PO SCH (21:00)
[2024-06-29] MEDS: LEVOTHYROXINE SODIUM 75 MCG TABLET PO SCH (06:27)
[2024-06-29 06:31] LABS: BUN Creatinine Ratio 17.1 (10-20); Calcium 8.3 mg/dl (8.6-10.3); Est GFR (African American) 104.6 ml/min; Est GFR (Non-African American) 90.3 ml/min; Potassium 4.1 mmol/L (3.5-5.1)
[2024-06-29 06:38] LABS: Hematocrit (blood only) 34.4 % (37.0-47.0); Hemoglobin 11.7 g/dl (12.0-16.0); Mean Corpuscular Hemoglobin 30.9 pg (25.0-34.0); Mean Corpuscular Volume 90.8 fL (80.0-100.0); Mean Platelet Volume 11.4 fL (9.4-12.4); Platelet Count 162 K/uL (130-400); RDW Coefficient of Variation 12.3 % (11.5-14.5); Red Blood Count 3.79 M/uL (4.20-5.40); White Blood Count 5.76 K/ul (4.8-10.8)
--- NOTE | 2024-06-29 06:56 | Orthopedic Progress Note ---
Date of Service June 29, 2024 Assessment & Plan (1) Osteoarthritis of left knee: Plan: POD #1 s/p s/p L TKA, with partial patellar tendon repair, with post-op pain. Resume diet. WBAT with brace locked in extension x 6 weeks, plus or minus walker ROM 0-30 degrees week 0-2. OOB to chair. Continue pain control. DVT prophylaxis: TEDs 3 weeks, foot pumps while in hospital, ASA 81 mg BID for 6 weeks. PT/OT. D/C planning, recommend rehab. Admission and Anticipated Discharge Date Admission Date: June 28, 2024 Subjective This one is more painful. Physical Exam Physical Exam: LLE: BCR < 2 sec. Sensation to light touch intact distally. Wiggling ankle and toes. Calf soft and non-tender. Dressing is clean, dry, intact. Results & Data Vital Signs (Past 12 Hours) Vital Signs Temp Pulse Resp BP Pulse Ox O2 Del Method 06/29/24 02:49 36.6 C 64 18 124/77 97 Room Air 06/28/24 23:28 36.6 C 67 18 105/64 96 Room Air 06/28/24 19:20 36.6 C 68 18 113/70 96 Room Air Laboratory Results 06/29/24 Range/Units 05:17 WBC 5.76 (4.8-10.8) K/ul RBC 3.79 L (4.20-5.40) M/uL Hgb 11.7 L (12.0-16.0) g/dl Hct 34.4 L (37.0-47.0) % MCV 90.8 (80.0-100.0) fL MCH 30.9 (25.0-34.0) pg MCHC 34.0 (32.0-36.0) g/dL RDW Std Deviation 41.0 (36.4-46.3) fL RDW Coeff of Georgina 12.3 (11.5-14.5) % Plt Count 162 (130-400) K/uL MPV 11.4 (9.4-12.4) fL Sodium 134 L (136-145) mmol/L Potassium 4.1 (3.5-5.1) mmol/L Chloride 103 (98-107) mmol/L Carbon Dioxide 29 (21-32) mmol/L Anion Gap 2 L (3-11) BUN 12 (6-23) mg/dl Creatinine 0.70 (0.6-1.2) mg/dl Est Cr Clr Drug Dosing 96.0 ml/min Est GFR ( Amer) 104.6 ml/min Est GFR (Non-Af Amer) 90.3 ml/min BUN/Creatinine Ratio 17.1 (10-20) Glucose 101 H (70-99(Fasting)) mg/dl Calcium 8.3 L (8.6-10.3) mg/dl
[2024-06-29] MEDS: MULTIVITAMIN TAB PO SCH (08:15)
[2024-06-29] MEDS: dexAMETHasone 4 MG TAB PO SCH (08:17)
[2024-06-29] MEDS: CeleBREX 200 MG CAP PO SCH (12:31)
[2024-06-29] MEDS: MAGNESIUM HYDROXIDE SUSP 30 ML UDC PO PRN (13:56)
--- NOTE | 2024-06-30 07:42 | Orthopedic Progress Note ---
Date of Service June 30, 2024 Assessment & Plan (1) Osteoarthritis of left knee: Plan: POD #2 s/p s/p L TKA, with partial patellar tendon repair, with post-op pain, improving. Resume diet. WBAT with brace locked in extension x 6 weeks, plus or minus walker ROM 0-30 degrees week 0-2. OOB to chair. Continue pain control. DVT prophylaxis: TEDs 3 weeks, foot pumps while in hospital, ASA 81 mg BID for 6 weeks. PT/OT. D/C planning, recommend rehab. Admission and Anticipated Discharge Date Admission Date: June 28, 2024 Subjective Left knee pain, but doing better than yesterday. Physical Exam Physical Exam: LLE: BCR < 2 sec. Sensation to light touch intact distally. Wiggling ankle and toes. Calf soft and non-tender. Dressing is clean, dry, intact. Able to flex from 0-30 degrees & straight leg raise with brace locked in extension. Results & Data Vital Signs (Past 12 Hours) Vital Signs Temp Pulse Pulse Resp BP Pulse Ox O2 Del Method 06/30/24 07:13 36.7 C 59 L 18 103/65 96 Room Air 06/29/24 19:42 36.5 C 60 16 126/81 95 Room Air
--- NOTE | 2024-06-30 09:30 | Orthopedic Progress Note ---
Date of Service June 30, 2024 Assessment & Plan (1) S/P total knee replacement using cement: Plan: The patient's dressings were changed today by me. Silverlon dressing was applied. Her postsurgical brace was adjusted. Knee-high N[place] stocking was applied. Continue PT. Continue aspirin for DVT prophylaxis. Awaiting insurance authorization for rehab versus senior care facility versus home health. Continue weightbearing in her brace. Follow-up in the office in approximately 10 days as scheduled. Continue ice and elevation frequently to reduce pain and swelling. Admission and Anticipated Discharge Date Admission Date: June 28, 2024 Subjective This 64-year-old female is seen today in her room. She is postop day 2 from left total knee arthroplasty with patellar tendon repair. She is doing well this morning. The patient denies any significant pain. She is still in her knee brace. She is hoping to be discharged to rehab today. She is waiting for insurance authorization. She denies any chest pain, shortness of breath, nausea, vomiting, or abdominal pain. Physical Exam Physical Exam: General: Well-developed, well-nourished, middle-aged female, in no acute distress. Laying in bed. Alert and oriented. Skin: Warm and dry with good turgor. No rashes. Postsurgical dressings are in place on the left leg. Upon removal, there is scant dried blood on the inner dressings. She has no active bleeding from her wound at this time. Expected postoperative ecchymosis and edema. Zipline is in place. Musculoskeletal: The patient has intact motor function to her ankle and toes. She has full terminal extension of her knee. She is able to perform a straight leg raise. Passive flexion easily to around 25 degrees. She does complain of pain in the anterior knee. Range of motion was not stressed. Neurologic: Gross sensation is intact across the left leg by soft touch. Peripheral pulses are 2+. Results & Data Vital Signs (Past 12 Hours) Vital Signs Temp Pulse Resp BP Pulse Ox O2 Del Method 06/30/24 07:13 36.7 C 59 L 18 103/65 96 Room Air
[2024-06-30] MEDS: bisacodyL 10 MG SUPP PR PRN (12:30)
[2024-06-30] MEDS: ONDANSETRON 4 MG OD TAB PO PRN (20:50)
[2024-07-01] MEDS: HYDROCODONE/ACETAMOPHEN 5/325MG TAB PO PRN (02:32)
--- NOTE | 2024-07-01 09:09 | Orthopedic Progress Note ---
Date of Service July 01, 2024 Assessment & Plan (1) S/P total knee replacement using cement: Plan: The patient was educated regarding today's findings. Conservative care measures were discussed. Given her intra-articular effusion, the patient was placed in Tubigrip for gentle compression and edema control. She may ice directly through this. She states she has an ice water cooler at home. She may place the bladder directly over the Tubigrip. Continue wearing the knee brace at all times other than bathing. We discussed an appropriate way to get in and out of the shower while wearing the brace and then sitting in a shower chair. She is still waiting for insurance authorization regarding rehab versus home health. She understands that it will likely be denied and she will go home with home health. Continue with ice, elevation, and start therapy this weekend. Call the office with any other concerns. Follow-up in the office in 10 days for Zipline removal. Continue aspirin 81 mg twice daily for 3 weeks. Prescription for pain medication will be sent once her final disposition is known. Admission and Anticipated Discharge Date Admission Date: June 28, 2024 Subjective This 64-year-old female is seen today in her room. She is postop day 3 from left total knee arthroplasty with patellar tendon repair. She is doing well this morning. The patient denies any significant pain. She is still in her knee brace. She is hoping to be discharged to rehab today. She is still waiting for insurance authorization. She denies any chest pain or shortness of breath. She developed nausea and vomiting overnight, but this has resolved currently. Physical Exam Physical Exam: General: Well-developed, well-nourished, middle-aged female, in no acute distress. Laying in bed. Alert and oriented. Conversive. Skin: Warm and dry with good turgor. No rashes. Expected postoperative ecchymosis and edema at her left knee. Swelling has increased some from yesterday. Her Silverlon dressing is still in place. Musculoskeletal: The patient has intact motor function of her hip, knee, and ankle on the left side. She has full terminal extension. She is able to contract her quadricep. There is difficulty with attempted straight leg raise. She is able to flex to around 30 degrees with some discomfort. She is currently in her postop brace. Neurologic: Gross sensation is intact across the left leg by soft touch. Peripheral pulses are 2+. Results & Data Vital Signs (Past 12 Hours) Vital Signs Temp Pulse Resp BP Pulse Ox O2 Del Method 07/01/24 07:35 36.7 C 72 18 103/70 93 Room Air
--- NOTE | 2024-07-01 13:13 | Discharge Summary ---
Date of Service July 01, 2024 Discharge Data Procedures Performed Operation Date: 06/28/24 07:00 Actual Procedures p Left Total Knee Arthroplasty, Left partial patellar tendon repair.(Left) - Jeffrey Meadows MD Hospital Course (1) S/P total knee replacement using cement: Patient was admitted to [facility] after undergoing an elective left total knee arthroplasty by Dr. Meadows on June 28, 2024. Her surgery was performed with spinal anesthesia and a peripheral nerve block and IV sedation. She was given 2 g of IV Ancef which was continued for 24 hours after her procedure. She was given 1 g of IV TXA for bleeding prophylaxis preoperatively which was repeated after dropping the tourniquet intraoperatively. She tolerated her procedure well. Intraoperatively she developed a partial patellar tendon tear. This was repaired during her surgery. In the recovery room she had x-rays of her left knee which showed a stable left total knee arthroplasty with no evidence of hardware failure or fracture. She was allowed to be out of bed, weight-bear as tolerated with a hinged range of motion brace on and locked in extension And a walker at all times. She was instructed to use the brace at all times. She was allowed to do gentle range of motion of the left knee 0 to 30 degrees. Physical therapy and Occupational Therapy consults were placed. Case management was also consulted for disposition needs. Patient requested inpatient rehab after her surgery. She was given a regular diet. Her home medications were continued. Her pain was well-controlled during her inpatient stay. Her vital signs remained stable. She was afebrile. Postoperative lab work on day 1 was within normal limits. She did have some hyponatremia and hypocalcemia, But this seems to be her b aseline. She remained to be asymptomatic. Her H&H remained stable and she did not develop any tachycardia, lightheadedness, dizziness. She was given Tylenol, [place] and IV Dilaudid for postoperative pain control. She tolerated these medications well even with her oxycodone allergies. Physical therapy and Occupational Therapy saw her on a daily basis and she did well out of bed with the assistance of a walker. Ice and elevation were encouraged. She was placed on aspirin 81 mg twice daily for DVT prophylaxis along with knee-high JESSICA stockings and AV impulse boots. Her dressing was changed on postoperative day 2 to a Silverlon dressing. She was instructed to leave this in place until her follow-up appointment. On postoperative day 3 authorization for inpatient rehab from her insurance was not obtained. Attempts were made for SNF referrals but there were no beds available at any of her preferred facilities. She elected to be discharged home on Thursday, July 01, 2024. She was deemed safe for discharge from PT and OT. She was discharged to her home in stable condition on Monday, July 01, 2024. She will follow-up as scheduled. Discharge instructions were reviewed. Pain medication prescriptions were sent to her pharmacy. All questions were answered.
== END 2024-07-01 16:44 | disposition home health service (06) ==
LOC: 3E 05:14 → ASU 05:14 → 3E 06-29 10:04